=== PATIENT | female | born 1955 | race Two or more races ===

== ENCOUNTER 2025-01-05 02:20 | Inpatient (IN) | payer MEDICARE, MEDICAID, SELFPAY ==
[2025-01-05] VITALS (15 sets, daily range): BP systolic 143–177; BP diastolic 75–96; PULSE 92–148; RESP 17–96; TEMP 36.8–38.8; O2SAT 93–98; BMI 32.9; BMI 35.1
--- NOTE | 2025-01-05 02:31 | XR_ITS ---
Examination: Hand, left 3 views Technique: Hand AP, oblique, lateral 3 views Date and time of exam: January 05, 2025 at 0244 hours INDICATIONS: Patient fell today with injury to the hand and wrist, hand pain and wrist pain FINDINGS: Severe osteopenia Acute impacted fracture distal radial metaphysis without significant offset Displaced fracture ulnar styloid tip IMPRESSION: Acute impacted fracture distal radial metaphysis
--- NOTE | 2025-01-05 02:31 | XR_ITS ---
Examination: Forearm, left, 2 views. Technique: Forearm, AP, lateral 2 views Date and time of exam: January 05, 2025 0250 hours INDICATIONS: Patient fell today with injury of the forearm, forearm pain. FINDINGS: Acute impacted fracture distal radial metaphysis Mild palmar angulation at the fracture site Displaced fracture ulnar styloid tip IMPRESSION: Acute impacted fracture distal radial metaphysis
--- NOTE | 2025-01-05 02:31 | XR_ITS ---
Examination: Wrist, left 3 views Technique: Wrist AP, oblique, lateral 3 views Date and time of exam: January 05, 2025 at 0249 hours INDICATIONS: Patient fell today with injury of the wrist, wrist pain. FINDINGS: Acute impacted fracture distal radial metaphysis Displaced fracture ulnar styloid tip Carpal bones intact IMPRESSION: Acute impacted fracture distal radial metaphysis
--- NOTE | 2025-01-05 02:32 | EKG_ITS ---
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
--- NOTE | 2025-01-05 02:33 | XR_ITS ---
Examination: AP chest single view TECHNIQUE: AP portable upright chest single view Examination type XX 10/07/2024 0241 hours Comparison August 17, 2023 INDICATIONS: Sepsis alert today FINDINGS: Mild prominence left ventricle Scarring versus pneumonia in the lingular segment Mild vascular congestion IMPRESSION: Recommend lateral chest to follow-up to differentiate scarring versus pneumonia in the lingular segment left upper lobe
[2025-01-05] MEDS: SODIUM CHLORIDE 0.9% 1000 ML 1,503 ML 1503 ML IV (02:54)
[2025-01-05 02:55] LABS: Basophils # (Auto) 0.1 Thou/mm3 (0.0-0.2); Basophils % (Auto) 1 % (0-2.5); Eosinophils % (Auto) 0 % (0-10); Hematocrit 33.4 % (36.0-46.0); Hemoglobin 11.5 g/dL (12.0-16.0); Immature Granulocytes % (Auto) 0 % (0-0); Immature Granulocytes Auto 0.03 Thou/mm3 (0.00-0.00); Lymphocytes # (Auto) 1.2 Thou/mm3 (1.0-4.8); Lymphocytes % (Auto) 13 % (10-50); Mean Corpuscular HGB Conc 34.4 g/dl (31.0-37.0); Mean Corpuscular Hemoglobin 26.6 pg (25.0-35.0); Mean Corpuscular Volume 77 fL (80-100); Monocytes # (Auto) 0.7 Thou/mm3 (0.0-0.8); Monocytes % (Auto) 7 % (0-12); Neutrophils # (Auto) 6.9 Thou/mm3 (1.8-7.7); Neutrophils % (Auto) 78 % (37-80); Nucleated Red Blood Cell % 0 /100 WBC (0); Platelet Count 204 Thou/mm3 (140-440); RDW Standard Deviation 41.7 fL (36.4-46.3); Red Blood Count 4.32 Miln/mm3 (4.00-5.20); White Blood Count 8.9 Thou/mm3 (3.6-11.0)
[2025-01-05] MEDS: ACETAMINOPHEN 325 MG TABLET 650 MG PO (02:55)
[2025-01-05] MEDS: cefTRIAXone/D5w 1gm IV premix 1 GM/50 ML BAG IV (02:56)
[2025-01-05 03:01] LABS: Lactate (Lactic Acid) 3.4 mMol/L (0.4-2.0)
--- NOTE | 2025-01-05 03:13 | PD.EDFALL ---
ED Fall Injury RME/HPI General Chief Complaint: Fall Stated Complaint: FALL Time Seen by Provider: 01/05/25 03:13 Source: patient, family, RN notes reviewed and old records reviewed Arrival date/time: 01/05/25 02:20 Mode of arrival: EMS Limitations: language barrier (Polish) RME / HPI RME / HPI Narrative: DR. MEHTA MAIN ED EVALUATION: 69 y/o female with Hx of Hypertension and Anxiety GALEN presents to ED with son c/o fever, increased blood pressure, pain below the right breast, left arm pain, and head pain s/p fall x 3 days ago. Per son, patient slipped and fell in the restroom 3 days ago and tripped over the garden hose 4 days ago. He believes it is due to patient having a panic attack. Patient also reports diarrhea and vomiting x yesterday. She took Pepto Bismal around noon which resolved the symptoms. She is currently taking 2 anxiety medications and 1 blood pressure medication. Ashley states anxiety medication is not working, but continues to be prescribed the same medication and dose. -P MHx: Hypertension, Anxiety -P Social Hx: N/A Patient reports fever, increased blood pressure, pain below the right breast, left arm pain. Also reports vomiting and diarrhea. Patient denies urinary symptoms, cough or any other associated symptoms or aggravating factors. No modifying factors, no radiation, no migration. No pain reported overall. PMHx: Hypertension, Anxiety Medications: Social history: N/A PCP: N/A Related Data Previous Rx's ?Medication ?Instructions ?Recorded cyclobenzaprine 5 mg tablet 5 mg PO TID PRN muscle spasm #30 02/13/23 tabs ibuprofen 800 mg tablet 800 mg PO TID PRN pain #30 tabs 02/13/23 Allergies Allergy/AdvReac Type Severity Reaction Status Date / Time No Known Allergies Allergy Verified 08/17/23 16:45 Review of Systems Review of Systems Systems Reviewed: All systems reviewed, normal except as documented Narrative Review of Systems: Gen: Fever EYES: No discharge, no visual changes, no pain HEENT: Head pain PULM: No cough CV: Elevated blood pressure GI: No nausea, vomiting, diarrhea : No frequency, no urgency, no dysuria Musc/skel: Rib pain, left arm pain Past Medical History Past Medical History CARDIAC: Positive Cardiac Disorders and Hypertension PSYCHO/SOCIAL: Positive Anxiety ED Exam Narrative Physical exam: GENERAL: In general the patient is awake, interactive, in an emergency department gurney, HEAD/EYES/EARS/NOSE/THROAT: normo-cephalic, atraumatic, mucus membranes are dry. Mild TTP occiput, no eccymosis, no step-off. No cervical tenderness palpation midline. Supple neck. CARDIOVASCULAR: Tachycardia, and regular rhythm, no murmurs, heart sounds are not distant, strong pulses in all four extremities that are equal and symmetric bilateral upper and lower extremities, normal capillary refill. CHEST/PULMONARY: normal chest rise and fall, good air movement, clear to auscultation bilaterally, normal inspiratory to expiratory ratios without evidence of respiratory distress. No chest wall ecchymosis or TTP. ABDOMEN: soft, RUQ TTP, no Whitfield's sign, no masses appreciated. BACK: normal range of motion without pain. No midline TTP to thoracic or lumabar spine, no bruising. No flank pain, no deformity. NEUROLOGICAL: cranio-facial features are symmetric, moves all four extremities equally without obvious limitations or weakness. EXTREMITY: no tenderness to palpation over the long bones or large joints of the bilateral upper and lower extremities, little ecchymosis to left mid-anterior tibia, 2 bruises, decreased ROM secondary to pain of LUE, no FROM of left elbow, minimal swelling of left wrist, TTP at distal forearm, FROM of all other extremities, no joint swelling, no joint erythema, no unilateral leg swelling, no peripheral edema. LUE bruising General Limitations: Present language barrier (Polish) Course Course Course Narrative: Post Splint check: left UE splint check- NVI. Quality Measures none (See MDM) Orders Category Date Time Status Bedside COVID-19 Antigen Test NOW Care 01/05/25 03:15 Active Bedside Influenza A&B Antigen Test NOW Care 01/05/25 03:14 Completed Dining Car Steward STAT Care 01/05/25 02:32 Active Continuous Pulse Oximetry STAT Care 01/05/25 02:32 Completed EKG (ED ONLY) *Do not use* NOW Care 01/05/25 02:32 Completed [place] to [place] Routine Care 01/05/25 04:08 Ordered Insert IV NOW Care 01/05/25 02:32 Active NPO STAT Care 01/05/25 02:32 Active Splint / Immobilizer STAT Care 01/05/25 04:07 Active Strict Intake and Output Routine Care 01/05/25 02:[address] cervical spine wo con Stat Exams 01/05/25 04:[address] chest abdomen pelvis w con SEPSIS PROTOCOL Stat Exams 01/05/25 04:[address] head/brain wo con Stat Exams 01/05/25 04:06 Ordered EKG (ED Only) Stat Exams 01/05/25 02:32 Draft US gall bladder Stat Exams 01/05/25 04:11 Taken XR chest 1V SEPSIS PROTOCOL Stat Exams 01/05/25 02:33 Taken XR forearm LT 2V Stat Exams 01/05/25 02:31 Taken XR hand comp LT min 3V Stat Exams 01/05/25 02:31 Taken XR wrist comp LT min 3V Stat Exams 01/05/25 02:31 Taken B-Type Natriuretic Peptide Stat Lab 01/05/25 02:43 Completed Blood Culture (Lab) Stat Lab 01/05/25 02:55 Received CBC Stat Lab 01/05/25 02:43 Completed Comprehensive Metabolic Panel Stat Lab 01/05/25 02:43 Completed LDH (Lactate Dehydrogenase) Stat Lab 01/05/25 02:43 Completed Lactate (Lactic Acid) Stat Lab 01/05/25 02:43 Completed Lactic Acid, 3 HR Stat Lab 01/05/25 05:47 Ordered Lipase Stat Lab 01/05/25 02:43 Completed Magnesium Stat Lab 01/05/25 02:43 Completed Partial Thromboplastin Time Stat Lab 01/05/25 02:43 Completed Phosphorous Stat Lab 01/05/25 02:43 Completed Procalcitonin Stat Lab 01/05/25 02:43 Completed Prothrombin Time with INR Stat Lab 01/05/25 02:43 Completed Troponin I Stat Lab 01/05/25 02:43 Completed Urinalysis Stat Lab 01/05/25 03:10 Completed Urine Culture Stat Lab 01/05/25 03:10 Received Acetaminophen Tab [Tylenol ES Tab] Med 01/05/25 04:15 Discontinued 1,000 mg PO X1 ONE Acetaminophen Tab [Tylenol Tab] Med 01/05/25 02:33 Discontinued 650 mg PO X1 ONE LORazepam [Ativan Inj] Med 01/05/25 04:09 Discontinued 2 mg IVP X1 ONE Ondansetron Inj [Zofran Inj] Med 01/05/25 04:32 Discontinued 4 mg IV X1 ONE Ondansetron Inj [Zofran Inj] Med 01/05/25 05:54 Once 4 mg IV X1 ONE POTASSIUM CHL 10 mEq IVPB [Kcl Ivpb] Med 01/05/25 04:33 Active 10 meq in 100 ml IV Q1H Potassium Chloride [K-Dur] Med 01/05/25 04:09 Discontinued 40 meq PO X1 ONE Sodium Chloride 0.9% 1000 ml [Ns] 1,503 ml Med 01/05/25 02:32 Discontinued IV 1,503 mls/hr cefTRIAXone/D5w 1gm IV premix [Rocephin/D5w 1gm IV Med 01/05/25 02:51 Discontinued premix] 1 gm in 50 ml IV X1 Oxygen Delivery NOW RT 01/05/25 02:32 Active Reevaluation(s) Reevaluation #1: Temperature 98.2F, patient is awake, still tachycardic, BP elevated, lungs CTA. Time: 04:44 Vital Signs Vital signs: Vital Signs Temperature 101.9 F H 01/05/25 02:33 Pulse Rate 125 H 01/05/25 02:33 Respiratory Rate 19 01/05/25 02:33 Blood Pressure 177/96 H 01/05/25 02:33 Pulse Oximetry (%) 97 01/05/25 02:33 Oxygen Delivery Method Room Air 01/05/25 02:33 Procedures -ED EKG Interpretation #1: Date of EK01/05/25 Time of EK:56 Rate: 129 Interpretation: Interpreted by me Additional EKG comment: Sinus tachycardia 129 BPM, no ST elevation, nonspecific St-T in II, similarly to changes in previous EKG, no STEMI, QTc 462. Fall MDM Narrative MDM Narrative:: Scribe Attestation: Anjali Chavira, soledad scribing for and in the presence of Dr. Teran. Provider Notation: Although this document has been carefully reviewed, there may still be some phonetic and other typographical errors. These errors are purely grammatical due to imperfections in the software program and should not be construed in any way to compromise the substance of the patient's medical care during this visit. 69 y/o female with Hx of Hypertension and Anxiety BIBA presents to ED with son c/o fever, increased blood pressure, pain below the right breast, left arm pain, and head pain s/p fall x 3 days ago. Also reports diarrhea and vomiting x yesterday. EDC: Sepis 0444: After 5L of fluids, will repeat lactic acid. DDX: Cellulitis, UTI, Sepsis, Contusion,Wrist fracture, Forearm fracture 0600: Care signed out to the oncoming dayshift provider. Past medical, surgical, social and family history reviewed. Vitals and home medications reviewed. Results and treatment plan discussed. They will assume the care of the patient at this time. Pending CT, US, and final disposition. Patient data External records reviewed:: [facility] previous records ( Prior ED records from 08/17/23 reviewed. Patient was seen for Anxiety.) Clinical information provided by:: patient, EMS and family (Son: ) Social determinants that could affect healthcare access:: none Patient has the following chronic illnesses:: Hypertension, Anxiety How is presenting disease/condition affected by chronic disease/condition?: exacerbated by Evaluation data The following diagnostics were reviewed and interpreted by me:: radiology exam(s) and EKG tracing(s) Lab and/or radiology exams considered but not ordered:: None Interpretation Summary: Chest X-Ray: Chest x-ray, 2V, indication: fall, read and interpreted by me: right middle lobe pneumonia, cannot R/O LLL, no effusion, no CHF, negative for cardiomegaly. Impression: Right middle lobe pneumonia. Pending official radiology read. Wrist X-Ray: Wrist x-ray, indication: fall, read and interpreted by me: distal radius impacted fracture, no dislocation, minimally displaced. Impression: impacted radius fracture. Pending official radiology read. Hand X-Ray: Hand x-ray, indication: fall, read and interpreted by me: distal radius impacted fracture, no dislocation, minimally displaced. Impression: impacted radius fracture. Pending official radiology read. Forearm X-Ray: Forearm 2v x-ray, indication: fall, read and interpreted by me: distal radius impacted fracture, no dislocation, minimally displaced. Impression: impacted radius fracture. Pending official radiology read. Medications / Prescriptions Medications or Prescriptions considered but not ordered:: None Medication administrations:: Medication Administration History Potassium Chloride (Kcl Ivpb) 10 meq in 100 mls @ 100 mls/hr IV Q1H LYNDA Stop: 01/05/25 06:32 Last Admin: 01/05/25 05:08 Dose: 100 mls/hr Documented By: EF Ondansetron HCl (Ondansetron Inj 2 Mg/Ml Inj 2 Ml) 4 mg IV X1 ONE; Protocol Stop: 01/05/25 05:55 Discontinued Medications Acetaminophen (Acetaminophen 325 Mg Tablet) 650 mg PO X1 ONE Stop: 01/05/25 02:34 Last Admin: 01/05/25 02:55 Dose: 650 mg Documented By: EF Acetaminophen (Acetaminophen 500 Mg Tablet) 1,000 mg PO X1 ONE Stop: 01/05/25 04:16 Last Admin: 01/05/25 04:14 Dose: Not Given Documented By: EF Non-Admin Reason: Cancelled by Provider Sodium Chloride (Ns) 1,503 mls @ 1,503 mls/hr 30 ml/kg infuse over 60 min (1503 ml) IV .Q1H ONE Stop: 01/05/25 03:31 Last Infusion: 01/05/25 03:38 Dose: Infused Documented By: Admin: 01/05/25 02:54 Dose: 1,503 mls/hr Documented By: EF Ceftriaxone Sodium/Dextrose (Rocephin/D5w 1gm Iv Premix) 1 gm in 50 mls @ 100 mls/hr IV X1 ONE Stop: 01/05/25 03:20 Last Infusion: 01/05/25 03:26 Dose: Infused Documented By: Admin: 01/05/25 02:56 Dose: 100 mls/hr Documented By: EF Lorazepam (Lorazepam 2 Mg/Ml Vial) 2 mg IVP X1 ONE Stop: 01/05/25 04:10 Last Admin: 01/05/25 04:18 Dose: 2 mg Documented By: EF Ondansetron HCl (Ondansetron Inj 2 Mg/Ml Inj 2 Ml) 4 mg IV X1 ONE; Protocol Stop: 01/05/25 04:33 Last Admin: 01/05/25 05:08 Dose: 4 mg Documented By: EF Potassium Chloride (Potassium Chloride 20 Meq Tabcr) 40 meq PO X1 ONE Stop: 01/05/25 04:10 Last Admin: 01/05/25 04:36 Dose: Not Given Documented By: EF Non-Admin Reason: pt vomitted See above if any Consultations Consultation(s) initiated? (list below): No Diagnosis Fall Differential Diagnosis: compression fracture, concussion with loss of consciousness and other (Cellulitis, UTI, Sepsis, Contusion,Wrist fracture, Forearm fracture) Most likely diagnosis given after review of the tests above:: Sepsis, Abdominal pain, Fracture of wrist, Elevated lactic acid level Admission Indicated Admission indicated?: not indicated Explain why admission is indicated or not indicated:: Pending CT, US, and final disposition. Signed out to 6 AM provider. Admission Request Was there a request for admission?: No Disposition Plan Disposition Plan: other (specify) Discharge Plan Prescriptions/Referrals Prescriptions/Med Rec: No Action ibuprofen 800 mg tablet 800 mg PO TID PRN (Reason: pain) Qty: 30 0RF cyclobenzaprine 5 mg tablet 5 mg PO TID PRN (Reason: muscle spasm) Qty: 30 0RF Problem List Clinical Impression: Abdominal pain, Fracture of wrist, Sepsis, Elevated lactic acid level Patient/Caregiver Discharge Instructions Education Materials: Abdominal Pain, Treating Wrist Fractures, Sepsis, ED Panic Attack, ED Fracture, Wrist, General Additional Instructions: DISCHARGE INSTRUCTIONS Even though you have been discharged from the Emergency Department, there are several things that you should do to ensure that you receive proper care: 1. DO READ your discharge instructions as these contain important information concerning your medical care. 2. If medication has been prescribed for your condition, fill the prescription as soon as possible and follow the directions on the medication. 3. RETURN AT ONCE TO THE EMERGENCY DEPARTMENT if you have any problems or concerns. These include but are not limited to fever, worsening pain(belly, chest, head, etc?), worsening shortness of breath, uncontrollable bleeding, inability to tolerate food and water, or any condition that makes you question your well-being. Also, if your symptoms do not improve in the next 12-24 hours, return to the ER or seek medical care immediately. 4. Be sure to follow up with your regular physician or specialist as instructed at discharge as this is the best way to ensure that you receive the very best of care. If you do not have a primary care physician, please contact a physician group and make an appointment. 5. Please visit [employer] for coupons regarding your prescriptions. It is a free service for you to use and can help reduce the cost of your medication. We would like to thank you for coming today and our hope is that we served you and your family well during your stay Jessiac regan sido dado de yumiko del Departamento de Emergencias sin embargo hay algunas cosas que debe hacer para asegurarse de que jessica continue recibiendo el cuidado adecuado. Por favor miracle las siguientes instrucciones con atenci?n: ? 1. Si es que le dieron alguna prescripci?n (medicamento), asegurese de ir a la farmacia de randhawa preferencia, llenar el medicamento y tomarlo conforme a las instrucciones. ? 2. Leas las instrucciones de yumiko con mucho cuidado dado que contienen informaci?n importante para randhawa melida y cuidado. 3. REGRESE AL DEPARTAMENTO DE EMERGENCIA SI tiene alg?n tipo de problema o preocupaci?n. [place] inclu[place] rosita no esta limitado a fiebre, mucho dolor abdominal, dolor de pecho, mucho dolor de madelin, falta de aire, sangrado incontrolable, nauseas o vomitos incontrolables, inhabilidad de tolerar alimentos, o cualquier otro tipo de condici?n que le tanvir cuestionar randhawa melida. 4. Asegurese de seguir con randhawa medico primario (tambien llamado medico de monika) o con el medico especialista que le indicaron al momento del yumiko en 3 a 5 lehman dado que esta es la mejor manera de asegurar que bob recibiendo el mejor cuidado medico. ? 5. Si es que tiene un telefono inteligente (smartphone) revise la pagina web o aplicaci?n [place] antes de pagar por fani prescripciones (medicinas) dado que asi podr?a encontrar un cup?n para que fani medicinas alfred menos costosas. El servicio es gratuito. ? Le agradecemos randhwaa visita el [place] de hoy y esperamos que randhawa melida mejore. Print Language: Polish
--- NOTE | 2025-01-05 03:16 | PC.NURSE ---
in and out not needed pt used restroom
[2025-01-05 03:24] LABS: Collection Type, Urine Clean Catch
[2025-01-05 03:45] LABS: B-Type Natriuretic Peptide 48 pg/mL (0-100)
[2025-01-05 03:50] LABS: Alanine Aminotransferase 32 U/L (10-49); Albumin, Serum 4.4 gm/dL (3.4-4.8); Albumin/Globulin Ratio 1.5 (1.2-2.2); Alkaline Phosphatase 77 U/L (46-116); Anion Gap 13 (7-16); Aspartate Amino Transferase 48 U/L (0-34); BUN/Creatinine Ratio 7 Ratio (12-20); Bilirubin,Total 1.5 mg/dL (0.3-1.2); Blood Urea Nitrogen 6 mg/dL (9-23); Calcium 8.6 mg/dL (8.3-10.6); Calcium (Corrected) 8.6 mg/dL (8.5-10.1); Carbon Dioxide 21.7 mMol/L (20.0-31.0); Chloride 100 mMol/L (98-107); Creatinine (Component) 0.9 mg/dL (0.6-1.3); Estimated Creatinine Clearance 59.2 mL/min (>60); Glucose 171 mg/dL (74-106); LDH (Lactate Dehydrogenase) 344 U/L (120-246); Lipase 37 U/L (12-53); Osmolality,Calculated 271 (275-295); Phosphorous 2.6 mg/dL (2.4-5.1); Sodium 135 mMol/L (136-145); Total Protein 7.4 gm/dL (5.7-8.2); Troponin I < 0.020 ng/mL (0.0-0.045); eGFR > 60 See Note
[2025-01-05 03:53] LABS: Procalcitonin 0.07 ng/ml (0.0-0.49)
[2025-01-05 03:55] LABS: INR 1.1 (0.9-1.3); Partial Thromboplastin Time 25.4 Seconds (22.0-36.0); Prothrombin Time 11.7 Seconds (9.0-12.2)
[2025-01-05 04:04] LABS: Bilirubin,Urine Negative (Negative); Blood,Urine Trace (Negative); Clarity,Urine Clear (Clear/Hazy); Color,Urine Lt-Yellow (Lt Yel-Yel); Glucose, Urine Negative (Negative); Hyaline Casts,Urine < 1 /hpf (0-1); Ketones,Urine 1+ (Negative); Leukocyte Esterase,Urine Negative (Negative); Nitrite,Urine Negative (Negative); PH,Urine 6.5 (5.0-7.0); Protein,Urine Trace (Neg - Trace); RBC,Urine 2 /hpf (0-3); Specific Gravity,Urine 1.019 (1.001-1.035); Squamous Epithelial Cell,Urine 2 /hpf (0-5); Urobilinogen,Urine Negative mg/dL (0.0-1.0); WBC,Urine 1 /hpf (0-5)
--- NOTE | 2025-01-05 04:06 | XR_ITS ---
Examination: CT brain head without contrast. 2-D sagittal coronal reconstructions Date and time of exam:January 05, 2025 0423 hours INDICATIONS: Patient fell 2 days ago with injury to the head, head pain CTDI: vol (mGy):54.4 DLP: (mGycm):1023 Technique: Multiple CT axial sections of the brain have been obtained, 5 mm slice thickness. Contrast has not been administered. 2-D sagittal, coronal reconstructions have been obtained Low dose protocols were performed. One or more of the following dose reduction techniques were used; automated exposure control, adjustment of the mA and/or KV according to patient size, use of iterative reconstruction technique. Findings: No significant ventricular enlargement. Intra-axial or extra-axial hemorrhage density is not seen. No mass effect or midline shift Basal cisterns are not remarkable. Fourth ventricle is midline. Cranial vault intact. Impression: Negative for acute hemorrhage, mass effect or midline shift
--- NOTE | 2025-01-05 04:06 | XR_ITS ---
Examination: CT chest with intravenous contrast CT abdomen with intravenous contrast CT pelvis with intravenous contrast 2-D coronal and sagittal reconstructions Time of exam: January 05, 2025 0523 hours INDICATIONS: Sepsis alert, patient fell today with injury to chest and abdomen with fever CTDI: vol (mGy) : 47.7 DLP: (mGycm): 1962 Technique: Multiple axial images of the chest, abdomen and pelvis with intravenous contrast, 3.0 mm slice thickness. Images obtained post intravenous injection Isovue 370 60 cc. 2-D sagittal and coronal reconstructions. Low dose protocols were performed. One or more of the following dose reduction techniques were used; automated exposure control, adjustment of the mA and/or KV according to patient size, use of iterative reconstruction technique. Findings: Pulmonary arteries intact No hemopericardium Trace pericardial thickening No pneumothorax pulmonary contusion or pneumonia No hemothorax Nondisplaced fractures right third and fourth and fifth ribs Manubrium body of the sternum is intact Prominent osteopenia with chronic osteoporotic compressions T8, T7, T6, T5 No acute thoracic lumbar or sacral fracture No liver splenic or renal laceration The gallbladder is distended with possible sludge Abdominal aorta is intact, no free body in the abdomen No abdominal or pelvic abscess No pericecal inflammatory change Colonic diverticulosis, no diverticulitis Atrophic uterus Urinary bladder intact Hips bones of the pelvis intact IMPRESSION: Nondisplaced fractures right third, fourth, fifth ribs anteriorly which may be acute, the appearance should be clinically correlated Thoracic aorta pulmonary arteries intact. No pneumothorax pulmonary contusion or hemothorax No abdominal parenchymal laceration No abdominal or pelvic abscess Abdominal aorta intact, no free fluid in the abdomen or pelvis Colonic diverticulosis, no diverticulitis
--- NOTE | 2025-01-05 04:07 | XR_ITS ---
Examination: CT cervical spine without contrast 2-D sagittal reconstructions 2-D coronal reconstructions 3-D reconstructions. Exam date and time:January 05, 2025 at 0423 hours INDICATIONS: Patient fell 3 days ago with injury to the neck, neck pain CTDI:vol (mGy) 20.9 DLP: (mGycm) 1390 Technique: Multiple 2 mm axial sections of the cervical spine have been obtained. The coronal and sagittal reconstructions have been obtained. 3-D reconstructions have been obtained. Low dose protocols were performed. One or more of the following dose reduction techniques were used; automated exposure control, adjustment of the mA and/or KV according to patient size, use of iterative reconstruction technique. Findings: Axial sections demonstrate intact base of the skull. C1 exhibit satisfactory relationship to the odontoid. No acute cervical vertebral body fracture seen. Alignment posterior spinous processes satisfactory. Impression: No acute cervical fracture.
--- NOTE | 2025-01-05 04:11 | XR_ITS ---
Examination: Abdomen sonogram, Limited Date and time of exam: January 05, 2025 at 0449 hours INDICATIONS: Right upper abdominal pain beginning 3 days ago Technique: Real-time de guzman scale transabdominal sonographic images of the upper abdomen obtained. Findings: Multiple gallstones Gallbladder sludge Gallbladder wall 0.2 cm Common bile duct 0.5 cm Pancreatic head 2.1 cm Liver 17 cm lobular contour fatty infiltration Normal hepatopedal portal venous flow Date and IVC Impression :. Cholelithiasis, negative or cholecystitis Mild hepatomegaly primary hepatocellular disease fatty liver
[2025-01-05] MEDS: LORazepam 2 MG/ML VIAL IVP (04:18)
[2025-01-05] MEDS: POTASSIUM CHL 10 mEq IVPB 10 MEQ/100 ML BAG 100 MEQ IV ×2 (05:08→07:13)
[2025-01-05] MEDS: ONDANSETRON INJ 2 MG/ML INJ 2 ML 4 MG IV ×3 (05:08→21:42)
--- NOTE | 2025-01-05 05:36 | PRELIM_ITS ---
Gallbladder ultrasound. January 05, 2025 at 0449 hours Clinical history: 69 yo with RUQ pain. Comparison: No prior study is available for comparison. Findings: Gallbladder wall is 2 mm thick. Gallbladder calculi and sludge noted. Gallbladder is distended. Common bile duct is 5 mm in diameter. Pancreas is unremarkable to the extent visualized. Liver is fatty infiltrated lobular contour. No focal hepatic lesion. Liver is 17.0 cm long. Main portal vein is antegrade. Inferior vena cava is patent. Impression: Gallbladder sludge and calculi, without findings of cholecystitis. Consider possible cystic duct obstruction. Fatty liver. Possible cirrhosis. Report Electronically Signed By: Demarco Torres 01/05/2025 5:36:14 AM [EST]
[2025-01-05 05:47] LABS: Reflex Lactate? Y
[2025-01-05 06:17] LABS: Lactic Acid, 3 HR 2.1 mMol/L (0.4-2.0)
--- NOTE | 2025-01-05 06:18 | PRELIM_ITS ---
CT scan of the head without intravenous contrast (axial sections with sagittal and coronal reformats). January 05, 2025 0423 hours Clinical History: 69 yo with hx of fall Comparison: None Findings: There is no intracranial hemorrhage, extra-axial collection, mass, mass-effect or midline shift. There is good de guzman-white differentiation. There is no CT evidence of acute large vascular territorial infarct. Ventricles are not enlarged or effaced. There is atherosclerotic calcification along the carotid siphons. Visualized paranasal sinuses and tympanomastoid cavities are clear. The bony calvarium is intact. Impression: No intracranial hemorrhage, mass-effect or midline shift. No CT evidence of acute large vascular territorial infarct. Report Electronically Signed By: Ricardo Johnson 01/05/2025 6:17:59 AM [EST]
--- NOTE | 2025-01-05 06:30 | PRELIM_ITS ---
CT scan of the chest, abdomen and pelvis with intravenous contrast (axial sections with sagittal and coronal reformats). January 05, 2025 0523 hours Clinical History: 69 yo with fall, sepsis Comparison: Correlation made with right upper quadrant ultrasound from 01/05/25 Findings: Chest: Heart is normal in size. There is no pericardial or pleural effusion. There is no thoracic aortic aneurysm or dissection. Visualized thyroid is unremarkable. There is no thoracic lymphadenopathy. There is minimal subsegmental atelectasis in the lungs. There is no pneumothorax. There is no acute osseous abnormality. There is degenerative change in the spine. There are old appearing compression fractures within the thoracic spine. Abdomen/pelvis: There is fatty liver. Gallbladder appears distended. The spleen, pancreas, adrenals and kidneys are unremarkable except for small incidental right upper pole renal cyst. Urinary bladder is of normal partially filled configuration. Reproductive organs are unremarkable. There are colonic diverticula without evidence of diverticulitis. There is no bowel obstruction. Appendix is normal. There is no free intraperitoneal air or fluid. There is no abdominal or pelvic lymphadenopathy. There is no acute osseous abnormality of the lumbar spine or pelvis. Impression: No acute abnormality in the chest, abdomen or pelvis. Report Electronically Signed By: Ricardo Johnson 01/05/2025 6:30:25 AM [EST]
--- NOTE | 2025-01-05 06:36 | EDNOTE_ITS ---
Emergency Room Addendum <Ramandeep Moon - Last Filed: 01/05/25 09:38> Addendum Narrative: 0600: Care assumed from Dr. Jansen (emergency physician). Past medical, surgical, social and family history reviewed. Vitals and home medications reviewed. Results and treatment plan discussed. I will assume the care of the patient at this time and will follow the patient, pending work-up. 0852: Admission Resident working with Dr. Zheng, made aware of the patient?s HPI, PMHx, lab and/or radiology results. Treatment plan was discussed. Will admit for further evaluation and management. Accepts patient for admission. DIAGNOSIS: Neutropenic fever abdominal pain fracture of wrist sepsis elevated lactic acid level pneumonia RADIOLOGY REPORT: Ordering Physician: Morenita Jansen MD Date of Service: 01/05/25 Procedure(s): CT chest abd pel w SEPSIS PRO Accession Number(s): [id number] cc: Chidi Lehman PA-C; Michel Ryan MD; Morenita Jansen MD~ Examination: CT chest with intravenous contrast CT abdomen with intravenous contrast CT pelvis with intravenous contrast 2-D coronal and sagittal reconstructions Time of exam: January 05, 2025 0523 hours INDICATIONS: Sepsis alert, patient fell today with injury to chest and abdomen with fever CTDI: vol (mGy) : 47.7 DLP: (mGycm): 1962 Technique: Multiple axial images of the chest, abdomen and pelvis with intravenous contrast, 3.0 mm slice thickness. Images obtained post intravenous injection Isovue 370 60 cc. 2-D sagittal and coronal reconstructions. Low dose protocols were performed. One or more of the following dose reduction techniques were used; automated exposure control, adjustment of the mA and/or KV according to patient size, use of iterative reconstruction technique. Findings: Pulmonary arteries intact No hemopericardium Trace pericardial thickening No pneumothorax pulmonary contusion or pneumonia No hemothorax Nondisplaced fractures right third and fourth and fifth ribs Manubrium body of the sternum is intact Prominent osteopenia with chronic osteoporotic compressions T8, T7, T6, T5 No acute thoracic lumbar or sacral fracture No liver splenic or renal laceration The gallbladder is distended with possible sludge Abdominal aorta is intact, no free body in the abdomen No abdominal or pelvic abscess No pericecal inflammatory change Colonic diverticulosis, no diverticulitis Atrophic uterus Urinary bladder intact Hips bones of the pelvis intact IMPRESSION: Nondisplaced fractures right third, fourth, fifth ribs anteriorly which may be acute, the appearance should be clinically correlated Thoracic aorta pulmonary arteries intact. No pneumothorax pulmonary contusion or hemothorax No abdominal parenchymal laceration No abdominal or pelvic abscess Abdominal aorta intact, no free fluid in the abdomen or pelvis Colonic diverticulosis, no diverticulitis Dictated By: Michel Ryan MD Signed By: <Electronically signed by Michel Ryan MD in OV> 01/05/25 0753 Ordering Physician: Morenita Jansen MD Date of Service: 01/05/25 Procedure(s): CT head/brain wo [facility] Accession Number(s): [id number] cc: Chidi Lehman PA-C; Michel Ryan MD; Morenita Jansen MD~ Examination: CT brain head without contrast. 2-D sagittal coronal reconstructions Date and time of exam:January 05, 2025 0423 hours INDICATIONS: Patient fell 2 days ago with injury to the head, head pain CTDI: vol (mGy):54.4 DLP: (mGycm):1023 Technique: Multiple CT axial sections of the brain have been obtained, 5 mm slice thickness. Contrast has not been administered. 2-D sagittal, coronal reconstructions have been obtained Low dose protocols were performed. One or more of the following dose reduction techniques were used; automated exposure control, adjustment of the mA and/or KV according to patient size, use of iterative reconstruction technique. Findings: No significant ventricular enlargement. Intra-axial or extra-axial hemorrhage density is not seen. No mass effect or midline shift Basal cisterns are not remarkable. Fourth ventricle is midline. Cranial vault intact. Impression: Negative for acute hemorrhage, mass effect or midline shift Dictated By: Michel Ryan MD Signed By: <Electronically signed by Michel Ryan MD in OV> 01/05/25 0746 Ordering Physician: Morenita Jansen MD Date of Service: 01/05/25 Procedure(s): CT cervical spine wo con Accession Number(s): [id number] cc: Chidi Lehman PA-C; Michel Ryan MD; Morenita Jansen MD~ Examination: CT cervical spine without contrast 2-D sagittal reconstructions 2-D coronal reconstructions 3-D reconstructions. Exam date and time:January 05, 2025 at 0423 hours INDICATIONS: Patient fell 3 days ago with injury to the neck, neck pain CTDI:vol (mGy) 20.9 DLP: (mGycm) 1390 Technique: Multiple 2 mm axial sections of the cervical spine have been obtained. The coronal and sagittal reconstructions have been obtained. 3-D reconstructions have been obtained. Low dose protocols were performed. One or more of the following dose reduction techniques were used; automated exposure control, adjustment of the mA and/or KV according to patient size, use of iterative reconstruction technique. Findings: Axial sections demonstrate intact base of the skull. C1 exhibit satisfactory relationship to the odontoid. No acute cervical vertebral body fracture seen. Alignment posterior spinous processes satisfactory. Impression: No acute cervical fracture. Dictated By: Michel Ryan MD Signed By: <Electronically signed by Michel Ryan MD in OV> 01/05/25 0747 Ordering Physician: Morenita Jansen MD Date of Service: 01/05/25 Procedure(s): US gall bladder Accession Number(s): [id number] cc: Chidi Lehman PA-C; Michel Ryan MD; Morenita Jansen MD~ Examination: Abdomen sonogram, Limited Date and time of exam: January 05, 2025 at 0449 hours INDICATIONS: Right upper abdominal pain beginning 3 days ago Technique: Real-time de guzman scale transabdominal sonographic images of the upper abdomen obtained. Findings: Multiple gallstones Gallbladder sludge Gallbladder wall 0.2 cm Common bile duct 0.5 cm Pancreatic head 2.1 cm Liver 17 cm lobular contour fatty infiltration Normal hepatopedal portal venous flow Date and IVC Impression :. Cholelithiasis, negative or cholecystitis Mild hepatomegaly primary hepatocellular disease fatty liver Dictated By: Michel Ryan MD Signed By: <Electronically signed by Michel Ryan MD in OV> 01/05/25 0856 <Louise Ma MD - Last Filed: 01/11/25 18:50> Addendum Narrative: 0600: Care assumed from Dr. Jansen (emergency physician). Past medical, surgical, social and family history reviewed. Vitals and home medications reviewed. Results and treatment plan discussed. I will assume the care of the patient at this time and will follow the patient, pending work-up. 0852: Resident working with Dr. Zheng, made aware of the patient?s HPI, PMHx, lab and/or radiology results. Treatment plan was discussed. Will admit for further evaluation and management. Accepts patient for admission. DIAGNOSIS: Neutropenic fever abdominal pain fracture of wrist sepsis elevated lactic acid level pneumonia RADIOLOGY REPORT: Ordering Physician: Morenita Jansen MD Date of Service: 01/05/25 Procedure(s): CT chest abd pel w SEPSIS PRO Accession Number(s): [id number] cc: Chidi Lehman PA-C; Michel Ryan MD; Morenita Jansen MD~ Examination: CT chest with intravenous contrast CT abdomen with intravenous contrast CT pelvis with intravenous contrast 2-D coronal and sagittal reconstructions Time of exam: January 05, 2025 0523 hours INDICATIONS: Sepsis alert, patient fell today with injury to chest and abdomen with fever CTDI: vol (mGy) : 47.7 DLP: (mGycm): 1962 Technique: Multiple axial images of the chest, abdomen and pelvis with intravenous contrast, 3.0 mm slice thickness. Images obtained post intravenous injection Isovue 370 60 cc. 2-D sagittal and coronal reconstructions. Low dose protocols were performed. One or more of the following dose reduction techniques were used; automated exposure control, adjustment of the mA and/or KV according to patient size, use of iterative reconstruction technique. Findings: Pulmonary arteries intact No hemopericardium Trace pericardial thickening No pneumothorax pulmonary contusion or pneumonia No hemothorax Nondisplaced fractures right third and fourth and fifth ribs Manubrium body of the sternum is intact Prominent osteopenia with chronic osteoporotic compressions T8, T7, T6, T5 No acute thoracic lumbar or sacral fracture No liver splenic or renal laceration The gallbladder is distended with possible sludge Abdominal aorta is intact, no free body in the abdomen No abdominal or pelvic abscess No pericecal inflammatory change Colonic diverticulosis, no diverticulitis Atrophic uterus Urinary bladder intact Hips bones of the pelvis intact IMPRESSION: Nondisplaced fractures right third, fourth, fifth ribs anteriorly which may be acute, the appearance should be clinically correlated Thoracic aorta pulmonary arteries intact. No pneumothorax pulmonary contusion or hemothorax No abdominal parenchymal laceration No abdominal or pelvic abscess Abdominal aorta intact, no free fluid in the abdomen or pelvis Colonic diverticulosis, no diverticulitis Dictated By: Michel Ryan MD Signed By: <Electronically signed by Michel Ryan MD in OV> 01/05/25 0753 Ordering Physician: Morenita Jansen MD Date of Service: 01/05/25 Procedure(s): CT head/brain wo con Accession Number(s): [id number] cc: Chidi Lehman PA-C; Michel Ryan MD; Morenita Jansen MD~ Examination: CT brain head without contrast. 2-D sagittal coronal reconstructions Date and time of exam:January 05, 2025 0423 hours INDICATIONS: Patient fell 2 days ago with injury to the head, head pain CTDI: vol (mGy):54.4 DLP: (mGycm):1023 Technique: Multiple CT axial sections of the brain have been obtained, 5 mm slice thickness. Contrast has not been administered. 2-D sagittal, coronal reconstructions have been obtained Low dose protocols were performed. One or more of the following dose reduction techniques were used; automated exposure control, adjustment of the mA and/or KV according to patient size, use of iterative reconstruction technique. Findings: No significant ventricular enlargement. Intra-axial or extra-axial hemorrhage density is not seen. No mass effect or midline shift Basal cisterns are not remarkable. Fourth ventricle is midline. Cranial vault intact. Impression: Negative for acute hemorrhage, mass effect or midline shift Dictated By: Michel Ryan MD Signed By: <Electronically signed by Michel Ryan MD in OV> 01/05/25 0746 Ordering Physician: Morenita Jansen MD Date of Service: 01/05/25 Procedure(s): CT cervical spine wo con Accession Number(s): [id number] cc: Chidi Lehman PA-C; Michel Ryan MD; Morenita Jansen MD~ Examination: CT cervical spine without contrast 2-D sagittal reconstructions 2-D coronal reconstructions 3-D reconstructions. Exam date and time:January 05, 2025 at 0423 hours INDICATIONS: Patient fell 3 days ago with injury to the neck, neck pain CTDI:vol (mGy) 20.9 DLP: (mGycm) 1390 Technique: Multiple 2 mm axial sections of the cervical spine have been obtained. The coronal and sagittal reconstructions have been obtained. 3-D reconstructions have been obtained. Low dose protocols were performed. One or more of the following dose reduction techniques were used; automated exposure control, adjustment of the mA and/or KV according to patient size, use of iterative reconstruction technique. Findings: Axial sections demonstrate intact base of the skull. C1 exhibit satisfactory relationship to the odontoid. No acute cervical vertebral body fracture seen. Alignment posterior spinous processes satisfactory. Impression: No acute cervical fracture. Dictated By: Michel Ryan MD Signed By: <Electronically signed by Michel Ryan MD in OV> 01/05/25 0747 Ordering Physician: Morenita Jansen MD Date of Service: 01/05/25 Procedure(s): US gall bladder Accession Number(s): [id number] cc: Chidi Lehman PA-C; Michel Ryan MD; Morenita Jansen MD~ Examination: Abdomen sonogram, Limited Date and time of exam: January 05, 2025 at 0449 hours INDICATIONS: Right upper abdominal pain beginning 3 days ago Technique: Real-time de guzman scale transabdominal sonographic images of the upper abdomen obtained. Findings: Multiple gallstones Gallbladder sludge Gallbladder wall 0.2 cm Common bile duct 0.5 cm Pancreatic head 2.1 cm Liver 17 cm lobular contour fatty infiltration Normal hepatopedal portal venous flow Date and IVC Impression :. Cholelithiasis, negative or cholecystitis Mild hepatomegaly primary hepatocellular disease fatty liver Dictated By: Michel Ryan MD Signed By: <Electronically signed by Michel Ryan MD in OV> 01/05/25 0856
--- NOTE | 2025-01-05 06:37 | PRELIM_ITS ---
CT scan of the cervical spine without intravenous contrast (axial sections with sagittal and coronal reformats). January 05, 2025 0423 hours Clinical History: 69 yo with fall Comparison: None Findings: There is no fracture, traumatic subluxation or other acute osseous abnormality of the cervical spine. There is straightening of the cervical spine curvature with loss of normal cervical lordosis. The prevertebral soft tissues are unremarkable. Impression: No acute osseous abnormality of the cervical spine. Straightening of the cervical spine may indicate muscle spasm. Report Electronically Signed By: Ricardo Johnson 01/05/2025 6:36:37 AM [EST]
[2025-01-05] MEDS: SODIUM CHLORIDE 0.9% 1000 ML 1,000 ML 999 ML IV (08:13)
[2025-01-05 10:09] LABS: Lactate (Lactic Acid) 0.9 mMol/L (0.4-2.0)
[2025-01-05 10:11] LABS: Basophils % (Auto) 1 % (0-2.5); Eosinophils % (Auto) 0 % (0-10); Hematocrit 29.3 % (36.0-46.0); Immature Granulocytes % (Auto) 0 % (0-0); Immature Granulocytes Auto 0.01 Thou/mm3 (0.00-0.00); Lymphocytes # (Auto) 0.9 Thou/mm3 (1.0-4.8); Lymphocytes % (Auto) 16 % (10-50); Mean Corpuscular HGB Conc 34.1 g/dl (31.0-37.0); Mean Corpuscular Hemoglobin 26.7 pg (25.0-35.0); Mean Corpuscular Volume 78 fL (80-100); Monocytes # (Auto) 0.5 Thou/mm3 (0.0-0.8); Monocytes % (Auto) 10 % (0-12); Neutrophils # (Auto) 3.9 Thou/mm3 (1.8-7.7); Neutrophils % (Auto) 73 % (37-80); Nucleated Red Blood Cell % 0 /100 WBC (0); Platelet Count 159 Thou/mm3 (140-440); RDW Standard Deviation 42.3 fL (36.4-46.3); Red Blood Count 3.74 Miln/mm3 (4.00-5.20); White Blood Count 5.4 Thou/mm3 (3.6-11.0)
--- NOTE | 2025-01-05 10:13 | PC.CC ---
Patient is a 69 year-old female who presents to the hospital for a fall. Jodee SHORT made [id number] contact with patient. ASW introduced self, role, and reason for visit. Patient appeared alert and oriented to self, location, and situation. Patient was pleasant and engaged in initial assessment. Patient reports she lives at home with her Lyle Damian. Patient reports her medical decision maker would be her in the event she is unable to make her own medical decisions. At home patient has been able to ambulate independently and complete her own ADLs. Patient reports she does not use any DME at home. She receives primary care with Chidi Lehman at [facility] and uses their pharmacy for prescription medications. Upon discharge the patient plans to return home. hotel services supervisor to follow up with any discharge needs.
--- NOTE | 2025-01-05 10:20 | ESHP_ITS ---
<Statement entered by Manisha Zheng MD - 01/08/25 12:11> I reviewed above note and agree with findings and plans. I have also personally examined the patient with medicine team and went over assessment and plan with medical team including trestle mainternance laborer and resident physician. <Statement entered by Regan Valdze MD - 01/05/25 16:12> Patient coming in with intractable nausea and vomiting, will replete electrolytes and monitor kidney function. Also has fractures from frequent falls which are likely secondary from dehydration. Will consult ortho and have PT work with patient once more stable. Case discussed with team. Regan Valdez MD PGY3 Documentation for date of: 01/05/25 HPI History of Present Illness History of present illness: Ms. eBltrán is a 69-year-old female with past medical history significant for hypertension, anxiety disorder with recurrent panic attacks presented to the ED due to intractable vomiting since yesterday and diarrhea for the past 3 days. Patient states that she has been having recurrent falls as well for the last 3 days. Patient states that she often gets panic attacks at least once daily which causes her to get very weak in her arms and legs and usually falls. She cannot recall if she has syncopal episodes or not but she does know that when she is having a panic attack she feels like she is dying she gets very short of breath and lightheaded and gets a severe headache. Patient states that she gets at least 1 panic attack daily and they are unprovoked by emotional or physical stressors. Patient states that she has been having a lot of anxiety for the past 5 years but the panic attacks are fairly new. Patient states for the past 3 days she has been having diarrhea and yesterday she took Pepto-Bismol which slightly has helped because she has not had a bowel movement today. Patient denies any recent travels or any changes to her diet. Patient also denies any sick contacts or anyone else at home who may have been sick with similar symptoms. Patient lives at home with her and and performs her activities of daily living independently. Patient denies any chest pain, palpitations, shortness of breath, abdominal pain currently. Pt denies hematemesis, melana or hematochezia. Patient states that for the past few days she has noticed she has mild tenderness on the right side of her chest and her left arm is also been hurting. ED course In the ED patient blood pressure was 177/96, pulse 125, temperature 101.9, saturating on room air Labs are significant for hemoglobin 11.5, hematocrit 33.4, MCV 77, sodium 135, potassium 3.0, glucose 177, lactate 3.4 ->2.1, total bilirubin 1.5, AST 48, lactic dehydrogenase 344 Urinalysis has no findings Imaging Forearm x-ray: L. Acute impacted fracture distal radial metastasis Hand x-ray: L. Acute impacted fracture distal radial metastasis Wrist x-ray: left acute impacted fracture distal radial metastasis Chest x-ray: Mild prominence left ventricle, Scarring versus pneumonia in the lingular segment, Mild vascular congestion CT chest/abdomen/pelvis: Nondisplaced fractures right third, fourth, fifth ribs anteriorly which may be acute, the appearance should be clinically correlated CT of head negative for acute hemorrhage, mass effect or midline shift CT cervical spine: No acute cervical fractures Gallbladder ultrasound: Cholelithiasis, negative for cholecystitis and mild hepatomegaly primary hepatocellular disease fatty liver disease EKG: Sinus tachycardia with heart rate of 129, no acute ST or T wave changes PMH: Hypertension, anxiety PSH: abdominal surgical (Pt does not know the reason of surgery, it was decades ago) SH: Denies smoking cigerrets, denies drugs and occational Home Meds: Hydrochlorothiazide 25mg, Hydroxyzine 25 PO, escitalopram 10mg Review of Systems Review of Systems Systems Reviewed: All systems reviewed, normal except as documented Exam Vital Signs Temp Pulse Resp BP Pulse Ox O2 Del Method 98.4 F 111 H 18 151/76 H 94 L Room Air 01/05/25 10:15 01/05/25 10:15 01/05/25 10:15 01/05/25 10:15 01/05/25 10:15 01/05/25 10:15 Narrative Exam GENERAL: A&Ox3 . obese, Ukrainian speaking female, cooperative, does not appear to be in acute distress NEURO: no focal neurological deficits HEENT: Atraumatic, Normocephalic. mucous membranes moist. Eyes open, symmetrical, & clear HEART: Normal Heart Sounds LUNGS: Clear to auscultation with no wheezing or crackles. ABDOMEN: soft, non-distended, non-tender, bowel sounds heard, no guarding or rebound tenderness SKIN: No Rash or ecchymoses EXTREMITIES: left forearm in a splint and tenderness is noted, No edema, able to move all 4 extremities, pedal pulses palpated Results: Labs 01/05/25 10:03 01/05/25 10:03 Labs: Short CBC 01/05/25 01/05/25 Range/Units 02:43 10:03 WBC 8.9 5.4 (3.6-11.0) Thou/mm3 Hgb 11.5 L 10.0 L (12.0-16.0) g/dL Hct 33.4 L 29.3 L (36.0-46.0) % Plt Count 204 159 D (140-440) Thou/mm3 BMP 01/05/25 02:43 Sodium 135 L Potassium 3.0 L Chloride 100 Carbon Dioxide 21.7 BUN 6 L Creatinine 0.9 Glucose 171 H Calcium 8.6 Cardiac Enzymes 01/05/25 Range/Units 02:43 Troponin I < 0.020 (0.0-0.045) ng/mL Liver Function 01/05/25 Range/Units 02:43 Total Bilirubin 1.5 H (0.3-1.2) mg/dL AST 48 H (0-34) U/L ALT 32 (10-49) U/L Alkaline Phosphatase 77 (46-116) U/L Albumin 4.4 (3.4-4.8) gm/dL Urine 01/05/25 Range/Units 03:10 Urine Color Lt-Yellow (Lt Yel-Yel) Urine Clarity Clear (Clear/Hazy) Urine pH 6.5 (5.0-7.0) Ur Specific [place] 1.019 (1.001-1.035) Urine Protein Trace (Neg - Trace) Urine Glucose (UA) Negative (Negative) Quality Measures Quality Measures none (See MDM) Advance care planning discussed with:: patient Medications Home Medications and Allergies Home Medications ?Medication ?Instructions ?Recorded ?Confirmed ?Type escitalopram oxalate 10 mg tablet 10 mg PO QDAY 01/05/25 History hydrochlorothiazide 25 mg tablet 25 mg PO QDAY 5 01/05/25 History hydroxyzine HCl 25 mg tablet 25 mg PO BID PRN anxiety 01/05/25 01/05/25 History Allergies Allergy/AdvReac Type Severity Reaction Status Date / Time No Known Allergies Allergy Verified 08/17/23 16:45 Visit Medications Acetaminophen (Acetaminophen 325 Mg Tablet) 650 mg PO Q6H PRN PRN Reason: Fever >101.5, pain 1-3 Stop: 02/04/25 09:47 Heparin Sodium (Porcine) (Heparin Sod Inj 5000 Unit/Ml Vial) 5,000 unit SC Q8HR LYNDA Stop: 01/19/25 13:59 Ondansetron HCl (Ondansetron Inj 2 Mg/Ml Inj 2 Ml) 4 mg IV Q6H PRN; Protocol PRN Reason: NAUSEA OR VOMITING Stop: 02/04/25 09:47 Oxycodone/Acetaminophen (Oxycodone/Apap 5/325 Tablet) 1 tab PO Q6H PRN PRN Reason: Pain Scale 4-10 (Moderate Stop: 01/10/25 09:47 Discontinued Medications Acetaminophen (Acetaminophen 325 Mg Tablet) 650 mg PO X1 ONE Stop: 01/05/25 02:34 Last Admin: 01/05/25 02:55 Dose: 650 mg Acetaminophen (Acetaminophen 500 Mg Tablet) 1,000 mg PO X1 ONE Stop: 01/05/25 04:16 Last Admin: 01/05/25 04:14 Dose: Not Given Sodium Chloride (Ns) 1,503 mls @ 1,503 mls/hr 30 ml/kg infuse over 60 min (1503 ml) IV .Q1H ONE Stop: 01/05/25 03:31 Last Infusion: 01/05/25 03:38 Dose: Infused Ceftriaxone Sodium/Dextrose (Rocephin/D5w 1gm Iv Premix) 1 gm in 50 mls @ 100 mls/hr IV X1 ONE Stop: 01/05/25 03:20 Last Infusion: 01/05/25 03:26 Dose: Infused Potassium Chloride (Kcl Ivpb) 10 meq in 100 mls @ 100 mls/hr IV Q1H LYNDA Stop: 01/05/25 06:32 Last Infusion: 01/05/25 10:13 Dose: Infused Sodium Chloride (Ns) 1,000 mls @ 999 mls/hr IV .Q1H1M ONE Stop: 01/05/25 09:09 Last Infusion: 01/05/25 10:14 Dose: Infused Lorazepam (Lorazepam 2 Mg/Ml Vial) 2 mg IVP X1 ONE Stop: 01/05/25 04:10 Last Admin: 01/05/25 04:18 Dose: 2 mg Ondansetron HCl (Ondansetron Inj 2 Mg/Ml Inj 2 Ml) 4 mg IV X1 ONE; Protocol Stop: 01/05/25 04:33 Last Admin: 01/05/25 05:08 Dose: 4 mg Ondansetron HCl (Ondansetron Inj 2 Mg/Ml Inj 2 Ml) 4 mg IV X1 ONE; Protocol Stop: 01/05/25 06:01 Last Admin: 01/05/25 06:11 Dose: Not Given Potassium Chloride (Potassium Chloride 20 Meq Tabcr) 40 meq PO X1 ONE Stop: 01/05/25 04:10 Last Admin: 01/05/25 04:36 Dose: Not Given Assessment & Plan Plan Ms. Beltrán is a 69-year-old female with past medical history significant for hypertension, anxiety disorder with recurrent panic attacks presented to the ED due to intractable vomiting since yesterday and diarrhea for the past 3 days. Patient states that she has been having recurrent falls as well for the last 3 days. Patient states that for the past few days she has noticed she has mild tenderness on the right side of her chest and her left arm is also been hurting. #Intractable vomiting #Gastroenteritis, likely viral #lactic acidosis - resolved #Hypokalemia #Hypocalcemia - Patient states for the past 3 days she has been having diarrhea and since yesterday she has been having vomiting nonstop all day. On admission pt has a fever of 101.9. Patient denies any recent travels or sick contacts - Potassium on admission is 3.0 - In the ED patient received 2.5 L NS and a dose of Rocephin -EKG: sinus tachycardia without acute ST or T wave changes - lactate 3.4 ->2.1 ->0.9 Plan: - Continue oral hydration encourage fluid intake if tolerating - Antiemetics as needed -Electrolytes repleted - No antibiotics right now due to no WBC count as well as patient is afebrile currently #Distal radial fracture, left #Multiple right rib fractures #Ground-level fall -Patient states she had ground-level fall 2 to 3 days ago and has been complaining of right-sided chest pain -Imaging is evident of 3 rib fractures and left distal radial fracture Plan -Pain control as needed -Consulted orthopedic surgeon, for evaluation of if patient is not a surgical candidate -Incentive spirometry, encouraged patient to use to help prevent pulmonary complications such as atelectasis and helps expand lungs and prevent lung collapse #Microcytic anemia - Hemoglobin 10.0, hematocrit 29.3, MCV 70 -No signs of acute bleeding patient denies hematemesis, melena or hematochezia -Will hold chemical anticoagulation -Will continue to monitor daily CBC #Primary Hypertension -Patient's home medication include hydrochlorothiazide 25 mg daily - Will hold home hydrochlorothiazide due to hypokalemia and will start patient on amlodipine 10 mg daily #Anxiety #Panic attacks - Patient's home medications include hydroxyzine and escitalopram however patient states hydroxyzine does not really help - Escitalopram 10 mg daily and will continue to monitor #Cholelithiasis -gallblader US showed Multiple gallstones, Gallbladder sludge and negative for cholecytitis, however pt is asymptomatic and does not complain of RUQ abdominal pain -Pt will need out patient follow with general surgery Health Maintenance Disposition: [facility] for observation DVT Prophylaxis: SCD QSHIFT GI Prophylaxis: not indicated Diet: regular diet Lines: Peripheral lines Code status: Full Assessment and plan discussed with my senior resident Dr. Valdez & attending physician Dr. Marce Reyes (PGY-1)- Internal medicine resident
[2025-01-05 10:33] LABS: Alanine Aminotransferase 26 U/L (10-49); Albumin, Serum 3.9 gm/dL (3.4-4.8); Albumin/Globulin Ratio 1.6 (1.2-2.2); Alkaline Phosphatase 66 U/L (46-116); Anion Gap 9 (7-16); Aspartate Amino Transferase 38 U/L (0-34); BUN/Creatinine Ratio 7 Ratio (12-20); Bilirubin,Total 1.9 mg/dL (0.3-1.2); Blood Urea Nitrogen < 5 mg/dL (9-23); Calcium 7.7 mg/dL (8.3-10.6); Calcium (Corrected) 7.8 mg/dL (8.5-10.1); Carbon Dioxide 23.5 mMol/L (20.0-31.0); Chloride 108 mMol/L (98-107); Creatinine (Component) 0.7 mg/dL (0.6-1.3); Estimated Creatinine Clearance 76.2 mL/min (>60); Globulin 2.4 gm/dL (2.3-3.5); Glucose 127 mg/dL (74-106); Osmolality,Calculated 278 (275-295); Potassium 3.3 mMol/L (3.4-5.1); Sodium 140 mMol/L (136-145); Total Protein 6.3 gm/dL (5.7-8.2); eGFR > 60 See Note
--- NOTE | 2025-01-05 12:13 | PC.NURSE ---
REPORT CALLED TO SUSAN HADDAD ON MED SURG. ALL QUESTIONS ANSWERED.
[2025-01-05] MEDS: oxyCODONE/APAP 5/325 TABLET 1 TAB PO ×2 (12:51→20:20)
[2025-01-05] MEDS: HEPARIN SOD INJ 5000 UNIT/ML VIAL SC (13:27)
[2025-01-05] MEDS: amLODIPine BESYLATE 5 MG TABLET 10 MG PO (15:26)
[2025-01-05] MEDS: CALCIUM CARBONATE 600 MG TABLET PO (16:59)
[2025-01-05] MEDS: POTASSIUM CHLORIDE 20 mEq TABCR 40 MEQ PO (16:59)
[2025-01-05] MEDS: LORazepam 0.5 MG TABLET 1 MG PO (18:32)
--- NOTE | 2025-01-05 19:00 | PC.NURSE ---
During shift report pt had pulled off splint on left arm, declined to put back on.
--- NOTE | 2025-01-05 20:20 | PC.NURSE ---
Attempted to place splint back on pt, pt declined stated she will put on tomorrow. Per pt was too tight and she could feel it in her heart throbbing so she removed. Offered to put on looser pt refused stated tomorrow and it causes more pain. Provided pt with Percocet for c/o pain.
--- NOTE | 2025-01-05 20:50 | PC.NURSE ---
Contacted Dr. Velez regarding pt c/o 06/20 pain to right side chest (rib fx) and left arm, states that does not go away and that she is having a lot of anxiety, she feels like I'm going to , per pt this is how she feels when she gets a lot of anxiety and takes medication at home for it. Pt HR had been >100 throughout day and during 1999 vitals reading at 122, recheck while resting in bed rate at 115. to input new orders for pt.
[2025-01-05] MEDS: MORPHINE SULF INJ 10 MG/ML VIAL IVP (21:35)
[2025-01-05] MEDS: hydrOXYzine HCL 25 MG TABLET PO (21:35)
[2025-01-06] VITALS (11 sets, daily range): BP systolic 130–161; BP diastolic 71–91; PULSE 87–118; RESP 16–94; TEMP 36.1–37.1; O2SAT 95
[2025-01-06] MEDS: oxyCODONE/APAP 5/325 TABLET 1 TAB PO ×2 (05:27→15:03)
[2025-01-06 05:34] LABS: Basophils # (Auto) 0.1 Thou/mm3 (0.0-0.2); Basophils % (Auto) 1 % (0-2.5); Eosinophils # (Auto) 0.1 Thou/mm3 (0.0-0.5); Eosinophils % (Auto) 2 % (0-10); Hematocrit 30.2 % (36.0-46.0); Hemoglobin 9.9 g/dL (12.0-16.0); Immature Granulocytes % (Auto) 1 % (0-0); Immature Granulocytes Auto 0.02 Thou/mm3 (0.00-0.00); Lymphocytes % (Auto) 22 % (10-50); Mean Corpuscular HGB Conc 32.8 g/dl (31.0-37.0); Mean Corpuscular Volume 83 fL (80-100); Monocytes # (Auto) 0.4 Thou/mm3 (0.0-0.8); Monocytes % (Auto) 10 % (0-12); Neutrophils # (Auto) 2.9 Thou/mm3 (1.8-7.7); Neutrophils % (Auto) 65 % (37-80); Nucleated Red Blood Cell % 0 /100 WBC (0); Platelet Count 140 Thou/mm3 (140-440); RDW Standard Deviation 44.3 fL (36.4-46.3); Red Blood Count 3.66 Miln/mm3 (4.00-5.20); White Blood Count 4.4 Thou/mm3 (3.6-11.0)
[2025-01-06 06:04] LABS: Alanine Aminotransferase 23 U/L (10-49); Albumin, Serum 3.7 gm/dL (3.4-4.8); Albumin/Globulin Ratio 1.5 (1.2-2.2); Alkaline Phosphatase 62 U/L (46-116); Anion Gap 7 (7-16); Aspartate Amino Transferase 32 U/L (0-34); BUN/Creatinine Ratio 8 Ratio (12-20); Bilirubin,Total 1.3 mg/dL (0.3-1.2); Blood Urea Nitrogen < 5 mg/dL (9-23); Calcium 8.2 mg/dL (8.3-10.6); Calcium (Corrected) 8.4 mg/dL (8.5-10.1); Carbon Dioxide 28.2 mMol/L (20.0-31.0); Cardiac Risk Estimate 2.4 RATIO (3.7-5.6); Chloride 106 mMol/L (98-107); Cholesterol 218 mg/dL (132-200); Creatinine (Component) 0.6 mg/dL (0.6-1.3); Estimated Creatinine Clearance 89.7 mL/min (>60); Globulin 2.5 gm/dL (2.3-3.5); Glucose 103 mg/dL (74-106); HDL Cholesterol 91 mg/dL (40-60); LDL Cholesterol,Calculated 94 mg/dL (0-130); Osmolality,Calculated 278 (275-295); Phosphorous 2.4 mg/dL (2.4-5.1); Potassium 3.5 mMol/L (3.4-5.1); Sodium 141 mMol/L (136-145); Thyroid Stimulating Hormone 3.13 uIU/mL (0.55-4.78); Total Protein 6.2 gm/dL (5.7-8.2); Triglycerides 166 mg/dL (30-150); eGFR > 60 See Note
[2025-01-06] MEDS: hydrOXYzine HCL 25 MG TABLET PO ×2 (08:06→20:09)
[2025-01-06] MEDS: amLODIPine BESYLATE 5 MG TABLET 10 MG PO (08:06)
[2025-01-06] MEDS: ESCITALOPRAM OXALATE 10 MG TABLET PO (08:07)
--- NOTE | 2025-01-06 12:08 | PC.SS ---
SS follow up note; Pending Dr. Villarreal's evaluation. Patient will discharge back home when medically cleared.
[2025-01-06] MEDS: ONDANSETRON INJ 2 MG/ML INJ 2 ML 4 MG IV (14:06)
--- NOTE | 2025-01-06 14:27 | ESPR_ITS ---
<Statement entered by Manisha Zheng MD - 01/10/25 08:12> I reviewed above note and agree with findings and plans. I have also personally examined the patient with medicine team and went over assessment and plan with medical team including internet marketing analyst and resident physician. Documentation for date of: 01/06/25 Subjective Subjective Interval history: Patient was seen and examined at the bedside. No acute overnight events. Patient was evaluated by orthopedic surgery and was recommended to follow-up outpatient for planning of surgery for her left wrist. Patient deemed to be stable for discharge as her symptoms of nausea and vomiting have resolved and she have not had any bowel movements today however she developed nausea and vomiting after lunch and discharge was held. Lipase was ordered and she was started on Protonix. Will continue monitoring. Exam Vital Signs Temp Pulse Resp BP Pulse Ox O2 Del Method 97.2 F 118 H 18 161/77 H 95 Room Air 01/06/25 11:35 01/06/25 12:00 01/06/25 11:35 01/06/25 11:35 01/06/25 11:35 01/06/25 11:35 Narrative Exam Gen: Well-developed and well-nourished obese female. HEENT: NCAT, PERRLA, EOMI, MMM, anicteric conjunctivae. CVS: normal S1 and S2. Regular tachycardia. No M/R/G. Resp: CTA B/L. No rhonchi, rales, crackles or wheezing. Abd: soft, obese, non-tender, non-distended. BS+ in all 4 quadrants. MSK: Good ROM in BUE & BLE. Left forearm in splint and is tender on ROM. Pain over right ribs, worsening with respiration. No edema or rash. Neuro: CN II-XII grossly intact. Strength 5/5 in BUE & BLE. Alert and oriented x3. Psych: appropriate mood and affect. Objective Labs 01/06/25 04:47 01/06/25 04:47 Labs: Laboratory Results - last 24 hr 01/06/25 04:47 WBC 4.4 RBC 3.66 L Hgb 9.9 L Hct 30.2 L MCV 83 MCH 27.0 MCHC 32.8 RDW Std Deviation 44.3 Plt Count 140 Neut % (Auto) 65 Lymph % (Auto) 22 [place] % (Auto) 10 Eos % (Auto) 2 Baso % (Auto) 1 Neut # (Auto) 2.9 Lymph # (Auto) 1.0 [place] # (Auto) 0.4 Eos # (Auto) 0.1 Baso # (Auto) 0.1 Immature Gran # (Auto) 0.02 H Absolute Nucleated RBC 0.00 Immature Gran % 1 H Nucleated RBC % 0 Sodium 141 Potassium 3.5 Chloride 106 Carbon Dioxide 28.2 Anion Gap 7 BUN < 5 L Creatinine 0.6 Estim Creat Clear Calc 89.7 eGFR > 60 BUN/Creatinine Ratio 8 L Glucose 103 Calculated Osmolality 278 Calcium 8.2 L Corrected Calcium 8.4 L Phosphorus 2.4 Magnesium 2.0 Total Bilirubin 1.3 H D AST 32 ALT 23 Alkaline Phosphatase 62 Total Protein 6.2 Albumin 3.7 Globulin 2.5 Albumin/Globulin Ratio 1.5 Triglycerides 166 H Cholesterol 218 H LDL Cholesterol, Calc 94 HDL Cholesterol 91 H Cholesterol/HDL Ratio 2.4 L TSH 3.13 Quality Measures Quality Measures VTE prophylaxis Advance care planning discussed with:: patient and child Assessment & Plan Assessment Current Active Medications: Generic Name Dose Route Start Last Admin Trade Name Freq PRN Reason Stop Dose Admin Acetaminophen 650 mg 01/05/25 09:48 Acetaminophen 325 Mg Tablet PO 02/04/25 09:47 Q6H PRN Fever >101.5, pain 1-3 Amlodipine Besylate 10 mg 01/05/25 15:15 01/06/25 08:06 Amlodipine Besylate 5 Mg Tablet PO 02/04/25 15:14 10 mg QDAY LYNDA Administration Escitalopram Oxalate 10 mg 01/06/25 09:00 01/06/25 08:07 Escitalopram Oxalate 10 Mg Tablet PO 02/05/25 08:59 10 mg QDAY LYNDA Administration Hydroxyzine HCl 25 mg 01/05/25 21:00 01/06/25 08:06 Hydroxyzine Hcl 25 Mg Tablet PO 02/04/25 20:59 25 mg BID LYNDA Administration Lorazepam 1 mg 01/05/25 18:26 01/05/25 18:32 Lorazepam 0.5 Mg Tablet PO 01/10/25 18:25 1 mg Q8HR PRN Administration ANXIETY Ondansetron HCl 4 mg 01/05/25 09:48 01/06/25 14:06 Ondansetron Inj 2 Mg/Ml Inj 2 Ml IV 02/04/25 09:47 4 mg Q6H PRN Administration NAUSEA OR VOMITING Protocol Oxycodone/Acetaminophen 1 tab 01/05/25 09:48 01/06/25 05:27 Oxycodone/Apap 5/325 Tablet PO 01/10/25 09:47 1 tab Q6H PRN Administration Pain Scale 4-10 (Moderate Plan Ms. Garcia is a 69-year-old female with past medical history significant for hypertension, anxiety disorder with recurrent panic attacks presented to the ED due to intractable vomiting since yesterday and diarrhea for the past 3 days. Patient states that she has been having recurrent falls as well for the last 3 days. Patient states that for the past few days she has noticed she has mild tenderness on the right side of her chest and her left arm is also been hurting. #Intractable vomiting. #Gastroenteritis, likely viral. #Cholelithiasis. #Cholecystitis ruled out. #Hyperbilirubinemia. - gallblader US showed multiple gallstones, Gallbladder sludge and negative for cholecytitis, however pt is asymptomatic and does not complain of RUQ abdominal pain. - Patient states for the past 3 days she has been having diarrhea and since yesterday she has been having vomiting nonstop all day. On admission pt has a fever of 101.9. Patient denies any recent travels or sick contacts. T. bili 1.5. - In the ED patient received 2.5 L NS and a dose of Rocephin. - No antibiotics right now due to no WBC count as well as patient is afebrile currently. - lactate 3.4 ->2.1 ->0.9. Plan: - Continue oral hydration encourage fluid intake if tolerating. - Antiemetics as needed. - lipase ordered. - started on protonix. - CLD, advance as tolerated. #Distal radial fracture, left. #Multiple right rib fractures. #Ground-level fall. - Patient states she had ground-level fall 2 to 3 days ago and has been complaining of right-sided chest pain. - Imaging is evident of 3 rib fractures and left distal radial fracture. Plan - Pain control as needed. - Consulted orthopedic surgeon, patient will need surgery outpatient. - Incentive spirometry, encouraged patient to use to help prevent pulmonary complications such as atelectasis and helps expand lungs and prevent lung collapse. #lactic acidosis, resolved. #Hypokalemia, resolved. #Hypocalcemia. - Potassium on admission is 3.0, corrected Ca 7.8, LA Plan: - monitor with daily labs and replete as needed. #Microcytic anemia. - Hemoglobin 10.0, hematocrit 29.3, MCV 70. - No signs of acute bleeding patient denies hematemesis, melena or hematochezia. Plan: - Will continue to monitor daily CBC. #Primary Hypertension. - Patient's home medication include hydrochlorothiazide 25 mg daily. Plan: - Will hold home hydrochlorothiazide due to hypokalemia and will start patient on amlodipine 10 mg daily. #Anxiety. #Panic attacks. - Patient's home medications include hydroxyzine and escitalopram however patient states hydroxyzine does not really help. Plan: - Escitalopram 10 mg daily and will continue to monitor. - lorazepam as needed. Health Maintenance: Disposition: [facility] for observation. DVT Prophylaxis: lovenox. GI Prophylaxis: protonix. Diet: CLD, advance as tolerated. Lines: Peripheral lines. Code status: Full code. Plan of care discussed with attending Dr. Zheng. Noé Tidwell MD, PGY 2. Disclaimer: This note was dictated by speech recognition. Minor errors in tree feller operator may be present due to voice recognition software.
[2025-01-06] MEDS: PANTOPRAZOLE INJ 40 MG VIAL IV (14:51)
[2025-01-06 15:57] LABS: Lipase 38 U/L (12-53)
--- NOTE | 2025-01-06 17:23 | PC.NURSE ---
Pt refusing care of left wrist splint in place for left wrist. Pt was provided with instruction via assessment technician services at the bedside. Pt refuses to wear the split due to her anxiety at night. Pt is willing to wear it only during the day. Pt refusing at this time.
[2025-01-06] MEDS: ACETAMINOPHEN 325 MG TABLET 650 MG PO (19:28)
[2025-01-07] VITALS (13 sets, daily range): BP systolic 128–172; BP diastolic 67–97; PULSE 82–113; RESP 15–96; TEMP 36.1–37.1; O2SAT 95–96
[2025-01-07] MEDS: oxyCODONE/APAP 5/325 TABLET 1 TAB PO ×2 (03:28→18:08)
--- NOTE | 2025-01-07 03:41 | PC.NURSE ---
Dr. Velez notified regarding elevated BP. Pain medication administered. Notified primary RN to recheck BP.
--- NOTE | 2025-01-07 04:39 | PC.NURSE ---
Notify MD Velez of pt BP 164/89 HR of 105. No new orders made.
[2025-01-07 05:46] LABS: Basophils # (Auto) 0.1 Thou/mm3 (0.0-0.2); Basophils % (Auto) 1 % (0-2.5); Eosinophils # (Auto) 0.2 Thou/mm3 (0.0-0.5); Eosinophils % (Auto) 4 % (0-10); Hematocrit 31.4 % (36.0-46.0); Immature Granulocytes % (Auto) 0 % (0-0); Immature Granulocytes Auto 0.01 Thou/mm3 (0.00-0.00); Lymphocytes # (Auto) 0.7 Thou/mm3 (1.0-4.8); Lymphocytes % (Auto) 13 % (10-50); Mean Corpuscular HGB Conc 31.8 g/dl (31.0-37.0); Mean Corpuscular Hemoglobin 26.8 pg (25.0-35.0); Mean Corpuscular Volume 84 fL (80-100); Monocytes # (Auto) 0.5 Thou/mm3 (0.0-0.8); Monocytes % (Auto) 9 % (0-12); Neutrophils # (Auto) 3.9 Thou/mm3 (1.8-7.7); Neutrophils % (Auto) 73 % (37-80); Nucleated Red Blood Cell % 0 /100 WBC (0); Platelet Count 137 Thou/mm3 (140-440); RDW Standard Deviation 44.9 fL (36.4-46.3); Red Blood Count 3.73 Miln/mm3 (4.00-5.20); White Blood Count 5.4 Thou/mm3 (3.6-11.0)
[2025-01-07 06:56] LABS: Alanine Aminotransferase 22 U/L (10-49); Albumin, Serum 3.9 gm/dL (3.4-4.8); Albumin/Globulin Ratio 1.6 (1.2-2.2); Alkaline Phosphatase 60 U/L (46-116); Anion Gap 9 (7-16); Aspartate Amino Transferase 27 U/L (0-34); BUN/Creatinine Ratio 7 Ratio (12-20); Bilirubin,Total 0.7 mg/dL (0.3-1.2); Blood Urea Nitrogen < 5 mg/dL (9-23); Calcium 8.5 mg/dL (8.3-10.6); Calcium (Corrected) 8.6 mg/dL (8.5-10.1); Carbon Dioxide 26.6 mMol/L (20.0-31.0); Chloride 105 mMol/L (98-107); Creatinine (Component) 0.7 mg/dL (0.6-1.3); Estimated Creatinine Clearance 76.9 mL/min (>60); Globulin 2.4 gm/dL (2.3-3.5); Glucose 176 mg/dL (74-106); Magnesium 1.9 mg/dL (1.6-2.6); Osmolality,Calculated 282 (275-295); Phosphorous 3.3 mg/dL (2.4-5.1); Potassium 3.3 mMol/L (3.4-5.1); Sodium 141 mMol/L (136-145); Total Protein 6.3 gm/dL (5.7-8.2); eGFR > 60 See Note
--- NOTE | 2025-01-07 08:39 | PC.NURSE ---
spoke with Idalia in Endo, ERCP cancel for today, order soft diet and place patient NPO aftermidnight.
[2025-01-07] MEDS: Magnesium Sulfate 2 GM Ivpb 2 GM/50 ML BAG IV (09:13)
[2025-01-07] MEDS: POTASSIUM CHLORIDE 20 mEq TABCR 40 MEQ PO (09:14)
[2025-01-07] MEDS: ACETAMINOPHEN 325 MG TABLET 650 MG PO (09:14)
[2025-01-07] MEDS: ESCITALOPRAM OXALATE 10 MG TABLET PO (09:15)
[2025-01-07] MEDS: amLODIPine BESYLATE 5 MG TABLET 10 MG PO (09:15)
[2025-01-07] MEDS: hydrOXYzine HCL 25 MG TABLET PO (09:15)
[2025-01-07] MEDS: ENOXAPARIN SOD INJ 40 MG/0.4 ML SYRINGE SC (09:16)
[2025-01-07] MEDS: PANTOPRAZOLE INJ 40 MG VIAL IV (09:27)
--- NOTE | 2025-01-07 10:46 | ECHO_ITS ---
Transthoracic Echo Report Ht (in): 62 Wt (lb): 190 Exam Location: Portable Status: Inpatient Impregnating Tank Operator: SALVATORE Judge^^^^ Indications: Procedure Performed: BP: / HR: MEASUREMENTS (Male / Female) Normal Values 2D ECHO LV Diastolic Diameter PLAX 3.8 cm 4.2 - 5.9 / 3.9 - 5.3 cm LV Systolic Diameter PLAX 2.5 cm IVS Diastolic Thickness 1.0 cm 0.6 - 1.0 / 0.6 - 0.9 cm LVPW Diastolic Thickness 0.9 cm 0.6 - 1.0 / 0.6 - 0.9 cm LV Relative Wall Thickness 0.5 LVOT Diameter 1.6 cm Aortic Root Diameter 3.1 cm LA Systolic Diameter LX 2.8 cm 3.0 - 4.0 / 2.7 - 3.8 cm LA Volume Index 24.8 cm?/m? 16 - 28 cm?/m? DOPPLER AV Peak Velocity 167.0 cm/s AV Peak Gradient 11.2 mmHg AV Mean Gradient 6.0 mmHg AV Velocity Time Integral 28.0 cm AI Peak Velocity 325.0 cm/s AI Peak Gradient 42.3 mmHg AI Pressure Half Time 349.0 ms LVOT Peak Velocity 121.0 cm/s LVOT Peak Gradient 5.9 mmHg LVOT Velocity Time Integral 28.7 cm AV Area Cont Eq vti 2.1 cm? AV Area Cont Eq pk 1.5 cm? MV Peak Velocity 131.0 cm/s MV Peak Gradient 6.9 mmHg MV Mean Velocity 81.2 cm/s MV Mean Gradient 3.0 mmHg MV Area PHT 5.1 cm? Mitral E Point Velocity 69.4 cm/s Mitral A Point Velocity 109.0 cm/s Mitral E to A Ratio 0.6 LV E' Lateral Velocity 9.0 cm/s Mitral E to LV E' Lateral Ratio 7.7 LV E' Septal Velocity 7.7 cm/s Mitral E to LV E' Septal Ratio 9.1 TR Peak Velocity 257.7 cm/s TR Peak Gradient 26.6 mmHg PV Peak Velocity 109.0 cm/s PV Peak Gradient 4.8 mmHg RVOT Peak Velocity 59.9 cm/s FINDINGS Left Ventricle Normal left ventricular size, wall thickness, systolic function with no obvious regional wall motion abnormalities. There is grade I diastolic dysfunction of the left ventricle (impaired relaxation pattern). The left ventricular ejection fraction is normal, estimated at 55-60%. Right Ventricle The right ventricle is normal in size and systolic function. The estimated right ventricular systolic pressure, 27 mmHg. Left Atrium The left atrium is normal by two-dimensional, color flow and Doppler imaging with no structural abnormalities, no thrombus formation present. Right Atrium The right atrium is normal by two-dimensional imaging, color flow and Doppler imaging with no structural abnormalities, no thrombus formation present. Atrial Septum The interatrial septum appears normal with no evidence of a shunt. Aorta The aorta is normal by two-dimensional, color flow and Doppler interrogation. Mitral Valve Trace to mild mitral regurgitation. Mild mitral annular calcification. Aortic Valve Aortic valve sclerosis. Tricuspid Valve There is mild tricuspid valve regurgitation. Pulmonic Valve The pulmonic valve is not well visualized. Vessels The pulmonary artery appears normal. The inferior vena cava pulmonary and hepatic veins appear normal. Pericardium The pericardium is normal by two-dimensional imaging. There is no significant pericardial effusion. CONCLUSIONS Indication: Sinus Tachycardia Normal LV size and function with EF 55-60%. Stage I Diastolic Dysfunction. Normal RV size and function with estimated RVSP 27 mmHg. Mild MR & MAC. Mild TR. Peter Diaz (Electronically Signed) Final Date: 07 January 2025 18:28
[2025-01-07] MEDS: hydrOXYzine HCL 25 MG TABLET 50 MG PO ×2 (14:38→21:48)
--- NOTE | 2025-01-07 16:17 | PC.SS ---
SS follow up note; Patient is pending an echo, possible discharge tomorrow.
--- NOTE | 2025-01-07 17:28 | ESPR_ITS ---
<Statement entered by Manisha Zheng MD - 01/12/25 08:36> I reviewed above note and agree with findings and plans. I have also personally examined the patient with medicine team and went over assessment and plan with medical team including commercial intern and resident physician. <Statement entered by Noé Tidwell MD - 01/12/25 08:32> Senior Resident Attestation: I supervised/discussed management plan with commercial intern physician Dr. Reyes, and was involved in the care of this patient. I personally saw and examined the patient and discussed the assessment and plan with the entire medicine team, including my attending. I agree with the assessment and plan as documented. Patient's care was discussed with attending physician, Dr. Zheng. Noé Tidwell MD PGY-2. Documentation for date of: 01/07/25 Subjective Subjective Interval history: No acute overnight events reported. Patient seen and examined at bedside this morning. Patient states that she no longer has diarrhea and had a formed bowel movement this morning. She also endorses to complete resolution of the nausea and vomiting and okay to advance diet for lunch today. Patient continues to have sinus tachycardia, previous EKG is reviewed with sinus tachycardia, due to unknown etiology will order further workup of TSH, EKG and echo to rule out any cardiac causes of tachycardia. Labs are significant with potassium 3.3 and repleted and magnesium 1.9 repleted 2 g and hemoglobin is stable at 10.0 and hematocrit 31.4. Due to patient's uncontrolled anxiety we will increase the hydroxyzine to 50 3 times daily and will add metoprolol. Patient has no other complaints. Exam Vital Signs Temp Pulse Resp BP Pulse Ox O2 Del Method 97.5 F 90 20 142/76 H 95 Room Air 01/07/25 15:45 01/07/25 16:00 01/07/25 15:45 01/07/25 15:45 01/07/25 15:45 01/07/25 15:45 Narrative Exam GENERAL: A&Ox3 . obese, Tajik speaking female, cooperative, does not appear to be in acute distress NEURO: no focal neurological deficits HEENT: Atraumatic, Normocephalic. mucous membranes moist. Eyes open, symmetrical, & clear HEART: Normal Heart Sounds LUNGS: Clear to auscultation with no wheezing or crackles. ABDOMEN: soft, non-distended, non-tender, bowel sounds heard, no guarding or rebound tenderness SKIN: No Rash or ecchymoses EXTREMITIES: left forearm in a splint and tenderness is noted, No edema, able to move all 4 extremities, pedal pulses palpated Objective Labs 01/07/25 05:20 01/07/25 05:20 Labs: Laboratory Results - last 24 hr 01/07/25 05:20 WBC 5.4 RBC 3.73 L Hgb 10.0 L Hct 31.4 L MCV 84 MCH 26.8 MCHC 31.8 RDW Std Deviation 44.9 Plt Count 137 L Neut % (Auto) 73 Lymph % (Auto) 13 [place] % (Auto) 9 Eos % (Auto) 4 Baso % (Auto) 1 Neut # (Auto) 3.9 Lymph # (Auto) 0.7 L [place] # (Auto) 0.5 Eos # (Auto) 0.2 Baso # (Auto) 0.1 Immature Gran # (Auto) 0.01 H Absolute Nucleated RBC 0.00 Immature Gran % 0 Nucleated RBC % 0 Sodium 141 Potassium 3.3 L Chloride 105 Carbon Dioxide 26.6 Anion Gap 9 BUN < 5 L Creatinine 0.7 Estim Creat Clear Calc 76.9 eGFR > 60 BUN/Creatinine Ratio 7 L Glucose 176 H D Calculated Osmolality 282 Calcium 8.5 Corrected Calcium 8.6 Phosphorus 3.3 Magnesium 1.9 Total Bilirubin 0.7 D AST 27 ALT 22 Alkaline Phosphatase 60 Total Protein 6.3 Albumin 3.9 Globulin 2.4 Albumin/Globulin Ratio 1.6 Quality Measures Quality Measures VTE prophylaxis Advance care planning discussed with:: patient Assessment & Plan Assessment Current Active Medications: Generic Name Dose Route Start Last Admin Trade Name Brandi PRN Reason Stop Dose Admin Acetaminophen 650 mg 01/05/25 09:48 01/07/25 09:14 Acetaminophen 325 Mg Tablet PO 02/04/25 09:47 650 mg Q6H PRN Administration Fever >101.5, pain 1-3 Amlodipine Besylate 10 mg 01/05/25 15:15 01/07/25 09:15 Amlodipine Besylate 5 Mg Tablet PO 02/04/25 15:14 10 mg QDAY LYNDA Administration Enoxaparin Sodium 40 mg 01/07/25 09:00 01/07/25 09:16 Enoxaparin Sod Inj 40 Mg/0.4 Ml Syringe SC 01/21/25 08:59 40 mg QDAY LYNDA Administration Escitalopram Oxalate 10 mg 01/06/25 09:00 01/07/25 09:15 Escitalopram Oxalate 10 Mg Tablet PO 02/05/25 08:59 10 mg QDAY LYNDA Administration Hydroxyzine HCl 50 mg 01/07/25 14:00 01/07/25 14:38 Hydroxyzine Hcl 25 Mg Tablet PO 02/06/25 13:59 50 mg TID LYNDA Administration Lorazepam 1 mg 01/05/25 18:26 01/05/25 18:32 Lorazepam 0.5 Mg Tablet PO 01/10/25 18:25 1 mg Q8HR PRN Administration ANXIETY Ondansetron HCl 4 mg 01/05/25 09:48 01/06/25 14:06 Ondansetron Inj 2 Mg/Ml Inj 2 Ml IV 02/04/25 09:47 4 mg Q6H PRN Administration NAUSEA OR VOMITING Protocol Oxycodone/Acetaminophen 1 tab 01/05/25 09:48 01/07/25 03:28 Oxycodone/Apap 5/325 Tablet PO 01/10/25 09:47 1 tab Q6H PRN Administration Pain Scale 4-10 (Moderate Pantoprazole Sodium 40 mg 01/06/25 14:45 01/07/25 09:27 Pantoprazole Inj 40 Mg Vial IV 02/05/25 14:44 40 mg QDAY LYNDA Administration Plan Ms. Garcia is a 69-year-old female with past medical history significant for hypertension, anxiety disorder with recurrent panic attacks presented to the ED due to intractable vomiting since yesterday and diarrhea for the past 3 days. Patient states that she has been having recurrent falls as well for the last 3 days. Patient states that for the past few days she has noticed she has mild tenderness on the right side of her chest and her left arm is also been hurting. #Sinus Tachycardia, unknown etiology -On admission and previous admission EKG shows sinus tachycardia -Pt persistently have tachycardia Plan: -Ordered EKG and Echo to rule out cardiac causes of tachycardia -ordered TSH to rule out hyperthyroidism -Started metorpolol 12.5mg BID #Intractable vomiting - Resolved #Gastroenteritis, likely viral. #Cholelithiasis. #Cholecystitis ruled out. #Hyperbilirubinemia. - gallblader US showed multiple gallstones, Gallbladder sludge and negative for cholecytitis, however pt is asymptomatic and does not complain of RUQ abdominal pain. - Patient states for the past 3 days she has been having diarrhea and since yesterday she has been having vomiting nonstop all day. On admission pt has a fever of 101.9. Patient denies any recent travels or sick contacts. T. bili 1.5. - In the ED patient received 2.5 L NS and a dose of Rocephin. - No antibiotics right now due to no WBC count as well as patient is afebrile currently. - lactate 3.4 ->2.1 ->0.9. Plan: - Continue oral hydration encourage fluid intake if tolerating. - Antiemetics as needed. - lipase ordered. - started on protonix. - CLD, advance as tolerated. #Distal radial fracture, left. #Multiple right rib fractures. #Ground-level fall. - Patient states she had ground-level fall 2 to 3 days ago and has been complaining of right-sided chest pain. - Imaging is evident of 3 rib fractures and left distal radial fracture. Plan - Pain control as needed. - Consulted orthopedic surgeon, patient will need surgery outpatient. - Incentive spirometry, encouraged patient to use to help prevent pulmonary complications such as atelectasis and helps expand lungs and prevent lung collapse. #lactic acidosis, resolved. #Hypokalemia, resolved. #Hypocalcemia. - Potassium on admission is 3.0, corrected Ca 7.8, LA Plan: - monitor with daily labs and replete as needed. #Microcytic anemia. - Hemoglobin 10.0, hematocrit 29.3, MCV 70. - No signs of acute bleeding patient denies hematemesis, melena or hematochezia. Plan: - Will continue to monitor daily CBC. #Primary Hypertension. - Patient's home medication include hydrochlorothiazide 25 mg daily. Plan: - Will hold home hydrochlorothiazide due to hypokalemia and will start patient on amlodipine 10 mg daily. #Anxiety. #Panic attacks. - Patient's home medications include hydroxyzine and escitalopram however patient states hydroxyzine does not really help. Plan: -Escitalopram 10 mg daily and will continue to monitor. -lorazepam as needed -Increased home hydroxyzine to 50mg TID Health Maintenance: Disposition: [facility] for observation. DVT Prophylaxis: lovenox. GI Prophylaxis: protonix. Diet: CLD, advance as tolerated. Lines: Peripheral lines. Code status: Full code. Assessment and plan discussed with my senior resident Dr. Tidwell & attending physician Dr. Marce Reyes (PGY-1)- Internal medicine resident
--- NOTE | 2025-01-07 17:35 | EKG_ITS ---
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
[2025-01-07] MEDS: METOPROLOL TARTRATE 25 MG TABLET 12.5 MG PO (21:48)
[2025-01-08] VITALS: BP 122/66; PULSE 114; PULSE 90; RESP 23; TEMP 37.2; O2SAT 94
[2025-01-08] MEDS: oxyCODONE/APAP 5/325 TABLET 1 TAB PO ×2 (00:02→05:54)
[2025-01-08] MEDS: LOPERAMIDE 2 MG CAPSULE PO (00:02)
[2025-01-08 04:00] VITALS: BP 134/69; PULSE 86; RESP 20; TEMP 36.6; O2SAT 91
[2025-01-08 05:31] LABS: Immature Granulocytes % (Auto) 0 % (0-0); Immature Granulocytes Auto 0.02 Thou/mm3 (0.00-0.00); Nucleated Red Blood Cell % 0 /100 WBC (0)
[2025-01-08 05:36] LABS: Basophils % (Auto) 1 % (0-2.5); Eosinophils # (Auto) 0.2 Thou/mm3 (0.0-0.5); Eosinophils % (Auto) 5 % (0-10); Hematocrit 30.9 % (36.0-46.0); Hemoglobin 9.9 g/dL (12.0-16.0); Lymphocytes % (Auto) 18 % (10-50); Mean Corpuscular Hemoglobin 26.9 pg (25.0-35.0); Mean Corpuscular Volume 84 fL (80-100); Monocytes # (Auto) 0.5 Thou/mm3 (0.0-0.8); Monocytes % (Auto) 9 % (0-12); Neutrophils # (Auto) 3.5 Thou/mm3 (1.8-7.7); Neutrophils % (Auto) 67 % (37-80); Platelet Count 151 Thou/mm3 (140-440); RDW Standard Deviation 44.7 fL (36.4-46.3); Red Blood Count 3.68 Miln/mm3 (4.00-5.20); White Blood Count 5.2 Thou/mm3 (3.6-11.0)
[2025-01-08] MEDS: hydrOXYzine HCL 25 MG TABLET 50 MG PO (05:48)
[2025-01-08 05:58] LABS: Alanine Aminotransferase 20 U/L (10-49); Albumin, Serum 3.7 gm/dL (3.4-4.8); Albumin/Globulin Ratio 1.5 (1.2-2.2); Alkaline Phosphatase 56 U/L (46-116); Anion Gap 7 (7-16); Aspartate Amino Transferase 23 U/L (0-34); BUN/Creatinine Ratio 15 Ratio (12-20); Bilirubin,Total 0.7 mg/dL (0.3-1.2); Blood Urea Nitrogen 9 mg/dL (9-23); Calcium 8.4 mg/dL (8.3-10.6); Calcium (Corrected) 8.6 mg/dL (8.5-10.1); Carbon Dioxide 30.5 mMol/L (20.0-31.0); Chloride 104 mMol/L (98-107); Creatinine (Component) 0.6 mg/dL (0.6-1.3); Estimated Creatinine Clearance 89.7 mL/min (>60); Globulin 2.5 gm/dL (2.3-3.5); Glucose 102 mg/dL (74-106); Magnesium 2.1 mg/dL (1.6-2.6); Osmolality,Calculated 279 (275-295); Phosphorous 3.5 mg/dL (2.4-5.1); Sodium 141 mMol/L (136-145); Thyroid Stimulating Hormone 3.07 uIU/mL (0.55-4.78); Total Protein 6.2 gm/dL (5.7-8.2); eGFR > 60 See Note
[2025-01-08 08:00] VITALS: BP 156/81; PULSE 80; RESP 17; TEMP 36.2; O2SAT 94
[2025-01-08 09:08] VITALS: BP 156/81; PULSE 80
[2025-01-08] MEDS: ENOXAPARIN SOD INJ 40 MG/0.4 ML SYRINGE SC (09:08)
[2025-01-08] MEDS: ESCITALOPRAM OXALATE 10 MG TABLET PO (09:08)
[2025-01-08] MEDS: PANTOPRAZOLE INJ 40 MG VIAL IV (09:08)
[2025-01-08] MEDS: amLODIPine BESYLATE 5 MG TABLET 10 MG PO (09:08)
[2025-01-08 09:23] VITALS: BP 143/61; PULSE 101
[2025-01-08] MEDS: METOPROLOL TARTRATE 25 MG TABLET 12.5 MG PO (09:23)
--- NOTE | 2025-01-08 10:11 | PC.NURSE ---
Patient anxious getting dress states she wants to go home, Dr. Valdez at bedside. Patient is 1:1 sitter and is sitting in a chair waiting for her son Lyle. Son is aware and states his on his way to the hospital.
--- NOTE | 2025-01-08 11:17 | PC.NURSE ---
Patient refuse wheelchair, she is alert and oriented x3, she was accompanied by her son Lyle.
--- NOTE | 2025-01-08 11:51 | PC.NURSE ---
around 0950 patient removed field checker, Dr. Valdez made aware.
--- NOTE | 2025-01-08 16:01 | ESDS_ITS ---
<Statement entered by Manisha Zheng MD - 01/10/25 08:19> I reviewed above note and agree with findings and plans. I have also personally examined the patient with medicine team and went over assessment and plan with medical team including multicultural internship and resident physician. Planned Discharge Date 01/08/25 DS: Providers Provider Date of admission: 01/05/25 09:49 Primary care physician: Chidi Lehman PA-C Admitting Provider: Manisha Zheng MD Attending Provider on Admission: Manisha Zheng MD Consults: 01/05/25 15:18 Consult to Orthopedic Routine Comment: Consulting Provider: Pb Sherwood Attending Provider on DC: Suzanna Reyes MD Discharging Provider: Suzanna Reyes MD DS: Diagnosis Problem List Completed Was Problem List Reviewed/Reconciled?: Yes Hospital Course Hospital Course Hospital course: Ms. Beltrán is a 69-year-old female with past medical history significant for hypertension, anxiety disorder with recurrent panic attacks presented to the ED due to intractable nausea vomiting, diarrhea for 3 days. Patient also have been having recurrent falls for the last 3 days. Patient states that she often gets panic attacks at least once daily which causes her to get very weak in her arms and legs causing her recurrent falls. Imaging is evident of left distal radial metastasis fracture, and multiple right rib fractures, orthopedic surgeon is consulted and recommended surgery outpatient. Pt was also encouraged to continue to use incentive spirometry to prevent pulmonary complications such as atelectasis and helps the lungs to expand and prevent lung collapse. Pt's nausea vomiting completed resolved, pt's hospital stay was extended due to persistent tachycardia despite resolution of GI symptoms and potassium was repleted adequately. TSH was found to be within normal limits and echo cardiogram was ordered and findings are normal LV and RV size and function with EF 55-60%. Stage I Diastolic Dysfunction. Pt's hydrochlorothiazide was discontinued due to hypokalemia and was started on amlodipine which the patient tolerated well. Pt's sinus tachycardia is likely secondary to anxiety disorder therefore pt is started on metoprolol, and pt's home hydroxyzine is increased to 50mg TID. During the course of hospitalization, imaging is also evident of cholelithiasis, however pt is asymptomatic and will need outpatient follow up with general surgeon. Patient is hemodynamically stable to be discharge home to self care. Discharge Recommendations -Follow up with orthopedic surgeon Dr Sherwood regarding wrist fracture, call his office and schedule appointment. -Your home medications have been changed, you can continue escitalopram, increased hydroxyzine to 50mg three times a day -For your blood pressure you have been started on new medication called amlodipine and your increased HR you have been started on metoprolol -Take tramadol 1 tab as needed every 8 hours for pain. -Follow up with PCP within 2 weeks -Discuss with your primary care regarding repeating CBC Hospitalization Diagnosis #Sinus Tachycardia, 2/2 to anxiety #Intractable vomiting - Resolved #Gastroenteritis, likely viral. #Cholelithiasis. #Cholecystitis ruled out. #Hyperbilirubinemia #Distal radial fracture, left. #Multiple right rib fractures. #Ground-level fall #lactic acidosis, resolved. #Hypokalemia, resolved. #Hypocalcemia. #Microcytic anemia. #Primary Hypertension. #Anxiety. #Panic attacks. Assessment and plan discussed with my attending physician Dr. Marce Reyes (PGY-1)- Internal medicine resident Time Spent with Patient Time attestation: Total time spent providing and/or coordinating discharge services: Time spent: Greater than 30 minutes Exam Vital Signs Temp Pulse Resp BP Pulse Ox O2 Del Method 97.2 F 101 H 17 143/61 H 94 L Room Air 01/08/25 08:00 01/08/25 09:23 01/08/25 08:00 01/08/25 09:23 01/08/25 08:00 01/08/25 08:00 Narrative Exam GENERAL: A&Ox3 . obese, Urdu speaking female, cooperative, does not appear to be in acute distress NEURO: no focal neurological deficits HEENT: Atraumatic, Normocephalic. mucous membranes moist. Eyes open, symmetrical, & clear HEART: Normal Heart Sounds LUNGS: Clear to auscultation with no wheezing or crackles. ABDOMEN: soft, non-distended, non-tender, bowel sounds heard, no guarding or rebound tenderness SKIN: No Rash or ecchymoses EXTREMITIES: left forearm in a splint and tenderness is noted, No edema, able to move all 4 extremities, pedal pulses palpated Discharge Plan Plan Patient Disposition: HOME (Self Care) Patient condition on transfer: Stable Care Plan Goals: -Follow up with orthopedic surgeon Dr Sherwood regarding wrist fracture, call his office and schedule appointment. -Your home medications have been changed, you can continue escitalopram, increased hydroxyzine to 50mg three times a day -For your blood pressure you have been started on new medication called amlodipine and your increased HR you have been started on metoprolol -Take tramadol 1 tab as needed every 8 hours for pain. -Follow up with PCP within 2 weeks -Discuss with your primary care regarding repeating CBC Prescriptions/Referrals Prescriptions/Med Rec: New tramadol 50 mg tablet 50 mg PO Q8H PRN (Reason: pain) Qty: 14 0RF hydroxyzine HCl 50 mg tablet 50 mg PO TID 30 Days Qty: 90 0RF amlodipine 10 mg tablet 10 mg PO QDAY Qty: 30 3RF metoprolol tartrate 25 mg tablet 25 mg PO BID Qty: 30 3RF Continued escitalopram oxalate 10 mg tablet 10 mg PO QDAY Discontinued hydroxyzine HCl 25 mg tablet 25 mg PO BID PRN (Reason: anxiety) hydrochlorothiazide 25 mg tablet 25 mg PO QDAY Referrals: Chidi Lehman PA-C [Primary Care Provider] - Pb Sherwood MD [Physician] - Patient/Caregiver Discharge Instructions Print Language: Urdu Stand Alone Forms: Lian Award Info., Patient Portal Info Letter, Work/Release Restrictions Discharge Order Discharge Orders: Discharge (Routine); Ordered 01/08/25 Ordered By: Suzanna Reyes Quality Discharge Quality Measures VTE prophylaxis
== END 2025-01-08 11:11 | disposition home or self-care (01) | DRG 308 ==
LOC: SERX 06:20 → SERHOLD 01-06 08:10 → S3NX 01-06 08:10
PROVIDERS: Student in an Organized Health Care Education/Training Program; Admitting Provider Internal Medicine; Emergency Provider Emergency Medicine; PCP Physician Assistant; Visit Provider Internal Medicine
DX: R00.0 Tachycardia, unspecified (principal); J18.9 Pneumonia, unspecified organism; S52.502A Unspecified fracture of the lower end of left radius, initial encounter for closed fracture; S22.41XA Multiple fractures of ribs, right side, initial encounter for closed fracture; E87.20 Acidosis, unspecified; C79.51 Secondary malignant neoplasm of bone; R50.81 Fever presenting with conditions classified elsewhere; R29.6 Repeated falls; K80.20 Calculus of gallbladder without cholecystitis without obstruction; K76.0 Fatty (change of) liver, not elsewhere classified; K52.9 Noninfective gastroenteritis and colitis, unspecified; K57.30 Diverticulosis of large intestine without perforation or abscess without bleeding; I10 Essential (primary) hypertension; E87.6 Hypokalemia; E83.51 Hypocalcemia; D50.9 Iron deficiency anemia, unspecified; F41.0 Panic disorder [episodic paroxysmal anxiety]; M85.88 Other specified disorders of bone density and structure, other site; M81.8 Other osteoporosis without current pathological fracture; F41.9 Anxiety disorder, unspecified; R11.10 Vomiting, unspecified; W01.0XXA Fall on same level from slipping, tripping and stumbling without subsequent striking against object, initial encounter; D70.9 Neutropenia, unspecified; K82.8 Other specified diseases of gallbladder; Z79.899 Other long term (current) drug therapy; Y92.238 Other place in hospital as the place of occurrence of the external cause
CPT/HCPCS: 36415; 70450; 71045; 71260; 72125; 73090; 73110; 73130; 74177; 76705; 80053; 80061; 81001; 83605; 83615; 83690; 83735; 83880; 83993; 84100; 84145; 84443; 84484; 85025; 85610; 85730; 87015; 87040; 87045; 87046; 87086; 87205; 87329; 87400; 87449; 87811; 87899; 93005; 93306; 94664; 96361; 96365; 96366; 96367; 96372; 96375; 99285; A4649; G0378; J0696; J1644; J1650; J2060; J2270; J2405; J2470; J3475; J3480; J7030; Q9967; A9270

== ENCOUNTER 2025-01-10 05:35 | Day surgery (SDC) | payer MEDICARE, MEDICAID, SELFPAY ==
[2025-01-09 10:12] VITALS: BMI 35.5
--- NOTE | 2025-01-09 15:17 | SUR.PREOP ---
Pt's son Lyle notified to bring pt at 0545 tomorrow for surgery.
[2025-01-10] VITALS (9 sets, daily range): BP systolic 141–168; BP diastolic 86–96; PULSE 77–93; RESP 12–19; TEMP 36.1–36.6; O2SAT 94–100; BMI 37.5
--- NOTE | 2025-01-10 07:18 | XR_ITS ---
Examination: Left wrist 2 views Fluoroscopy Exam date and time: January 10, 2025 0922 hours INDICATIONS: Operative reduction internal fixation fracture distal radial metaphysis, acute impacted fracture distal radial metaphysis on plain film x-rays January 05, 2025 TECHNIQUE AND FINDINGS: Operative reduction internal fixation fracture distal radius with anatomic alignment Orthopedic hardware satisfactory position Fluoroscopy 16 seconds 2 spot fluoroscopic images of the wrist radiation dose 0.144 milligray IMPRESSION: Operative reduction internal fixation fracture distal radial metaphysis with anatomic alignment
--- NOTE | 2025-01-10 07:27 | SUR.PREOP ---
Patient expressed gratitude for prayer before their procedure.
--- NOTE | 2025-01-10 09:15 | SUR.PHASEI ---
0915: received pt from OR via [place]. received report from Dr. Ngo and Monique RN. pt alert and awake. no s/s of resp. distress or discomfort. c/o pain 2/10, tolerable. dressing to left wrist and hand clean, dry and intact. positive CMS: wiggle left fingers, cap refill less than 2 seconds and positive pulse.
--- NOTE | 2025-01-10 09:18 | PD.SUROPNT ---
Date of Procedure 01/10/25 Pre Op Diagnosis Comminuted angulated impacted displaced fracture of the left distal radius Post Op Diagnosis Same Procedure Open reduction and internal fixation with a 5 hole interlocking distal volar radial plate Findings Refer dictation Procedure Description Patient was given general endotracheal anesthesia. Wrist block was also given. Following that a tourniquet was placed on left upper arm. Part was thoroughly prepped and draped. After using Esmarch the tourniquet pressure was raised to 250 mmHg. Intravenous antibiotics was given at the time of anesthesia I skin incision was made from the wrist crease extending proximally for about 4 to 5 inches. Deeper dissection was carried out. A plane was developed between the flexor carpi radialis muscle and brachioradialis muscle. The median nerve was protected and the flexor carpi radialis and radial nerve and artery was protected in the brachioradialis muscle. The pronator quadratus muscle was encountered. That was reflected from the flexor aspect of the radius. The fracture fragment was exposed. With the help of [place] and curette the soft tissue interposed between the fracture fragment was removed Following that the fracture was manipulated and reduced. Once satisfactory reduction was achieved then a 5 hole volar plate was mounted. Once satisfactory placement was achieved a guide pin was passed to stabilize the plate. Following that 1 drill hole was made on the proximal vertical limb and appropriate size cortical screw was placed. 1 more drill hole was made and another cortical screw was placed proximally. Following that attention was paid towards the distal end. The 2 medial holes were drilled in sequence and appropriate side cortical screw was placed. While tightening the screws the volar tilt was maintained. Following that 3 interlocking screws was placed in sequence Following that the guidepin was removed from the vertical limb and 2 interlocking screw 1 at the most proximal and 1 at the distal end was placed. Position was repeatedly checked under C-arm and found to be a very good Wound was irrigated with antibiotic solution every 4 to 5 minutes Closure was done in layers with the help of 2-0 Vicryl for the soft tissue and the skin was closed with lela Cleaning the wound with hydrogen peroxide solution and sterile dressing was applied and tourniquet pressure was released. Splint was placed as well. Patient tolerated procedure well. Estimated blood loss 5 mL. Prognosis in this case is fair to good. Anesthesia GETA and other Pathology / specimen None Estimated Blood Loss 5 Surgeon Pb Sherwood MD Surgical Staff Operation Date: 01/10/25 07:30 Case Staff Anesthesiologist: Lavelle Ngo RNstrickler attendant: Mark Vanegas
[2025-01-10] MEDS: fentaNYL CIT INJ 50 mCg/ML AMP 2ML IV ×2 (09:23→09:44)
[2025-01-10] MEDS: MORPHINE SULF INJ 10 MG/ML VIAL 2 MG IVP (09:34)
--- NOTE | 2025-01-10 09:51 | XR_ITS ---
Examination: Left wrist 2 views Technique one AP lateral left wrist 2 views Exam date and time: January 10, 2025 1012 hours Comparison January 05, 2025 INDICATIONS: Postop reduction wrist fracture FINDINGS: Postop reduction internal fixation fracture distal radial metaphysis with satisfactory alignment Orthopedic hardware satisfactory position Ulnar styloid tip fracture IMPRESSION: Postop reduction internal fixation fracture distal radial metaphysis with satisfactory alignment
--- NOTE | 2025-01-10 09:59 | SUR.PHASEII ---
0957:patient able to drink water without any issues.
--- NOTE | 2025-01-10 10:03 | ESHP_ITS ---
RE: SENAIT MICHELE : 1955 DATE OF ADMISSION: 01/10/2025 HISTORY OF PRESENT ILLNESS: The patient came to my office on 01/09/2025 for detailed preop history and physical examination. The patient presented to me with history of fall on 01/05/2025. The patient noticed immediate pain and deformity of the left wrist. The patient went to the emergency room and x-ray was obtained. It revealed fracture of the left distal radius. It was impacted, overriding, angulated and displaced fracture. PAST MEDICAL HISTORY: The patient has a history of high blood pressure. No history of diabetes mellitus, asthma, seizure, chest pain, myocardial infarction, or bleeding disorder. PAST SURGICAL HISTORY: Nil. DRUG HISTORY: The patient is on; 1. Amlodipine. 2. Hydroxyzine. 3. Metoprolol. 4. Tramadol. ALLERGIES: NIL KNOWN FAMILY HISTORY AND SOCIAL HISTORY: The patient denies smoking, drinking and is not working. PHYSICAL EXAMINATION: GENERAL: Normal built lady. Pulse is 68 per minute. Blood pressure is 128/76. NECK: Soft, supple. No masses felt. Trachea is centrally placed. CARDIOVASCULAR SYSTEM: First and second heart sounds are normal. No murmur heard. LUNGS: Bilateral vesicular breath sounds. CHEST: Clear. ABDOMEN: Soft. No masses felt. Bowel sounds present. BREASTS: Not indicated in this case. RECTAL: The patient is advised to see family physician for rectal examination. EXTREMITIES: Left wrist examination revealed swelling, ecchymosis, and bruise. There was a deformity as well. The patient had weak fist and surety bond agent. Sensation was a little bit dull in the median nerve distribution in the hand. DIAGNOSTIC DATA: X-ray confirmed impacted angulated displaced fracture of the left distal radius. ASSESSMENT AND PLAN: Diagnosis and prognosis was explained to the patient and the family in detail. Surgical fixation, plate and screw were discussed and advised. Risks of anesthesia was explained and that includes, but not limited to reaction to anesthetic agents, cardiac arrest rarely it might be fatal. Risks with operation includes infection and if that happens, the patient will need further surgical procedure. Other risks include delayed healing, wound dehiscence, etc. No guarantee is given regarding the outcome of the procedure and/or relief of symptoms. Appropriate lab work done. Surgery is booked for 01/10/2025. DT: 09:26:59 TT: 10:02:00 Ref: [id number] - TID: [id number]
--- NOTE | 2025-01-10 10:25 | SUR.PHASEII ---
1025: pt discharge to home via wheelchair. pt alert and oriented to name, place and time. dressing to left wrist and hand clean, dry and intact. positive CMS: wiggle left fingers, cap refill less than 2 seconds and positive pulse. discharge instructions given to [place] and pt. all belongings brought given back to patient.
--- NOTE | 2025-01-15 10:25 | ESPR_ITS ---
Documentation for date of: 01/15/25 POST ANESTHESIA NOTE: Patient had general LMA anesthesia and L supraclavicular nerve block for L rad ius ORIF on 01/10/25. 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 Lavelle Ngo MD Anesthesia Progress Note Progress Note Most recent Vital Signs: Last Vital Signs Temp 97.8 F 01/10/25 09:55 Pulse 90 01/10/25 10:15 Resp 18 01/10/25 10:15 BP 155/88 H 01/10/25 10:15 Pulse Ox 94 L 01/10/25 10:15 O2 Flow Rate 2 01/10/25 09:45
== END 2025-01-10 10:25 | disposition home or self-care (01) ==
PROVIDERS: PCP Family Medicine; Referring Provider Orthopaedic Surgery; Visit Provider Orthopaedic Surgery
PROC: (CPT 25607; principal; 2025-01-10 07:30)
DX: S52.592A Other fractures of lower end of left radius, initial encounter for closed fracture (principal); I10 Essential (primary) hypertension; W19.XXXA Unspecified fall, initial encounter
CPT/HCPCS: 25607; 73100; 76000; 85025; A4217; A4649; C1713; J0690; J1100; J2250; J2270; J2371; J2704; J2765; J2795; J3010; J3490

== ENCOUNTER → 2025-02-17 | Outpatient (CLI) | payer MEDICARE, MEDICAID, SELFPAY ==
--- NOTE | 2025-02-17 10:43 | XR_ITS ---
Examination: Wrist, left 3 views Technique: Wrist AP, oblique, lateral 3 views Date and time of exam: February 17, 2025 1112 hours INDICATIONS: History postop reduction internal fixation fracture distal radial metaphysis FINDINGS: Further healing fracture distal radius compared with January 10, 2025 With be hardware satisfactory position Ulnar styloid tip fracture IMPRESSION: Further significant healing fracture distal radius with stable and satisfactory alignment
== END | disposition home or self-care (01) ==
PROVIDERS: PCP Physician Assistant; Referring Provider Orthopaedic Surgery; Visit Provider Orthopaedic Surgery
DX: S52.502D Unspecified fracture of the lower end of left radius, subsequent encounter for closed fracture with routine healing (principal); X58.XXXD Exposure to other specified factors, subsequent encounter
CPT/HCPCS: 73110

== ENCOUNTER 2025-05-16 20:01 | Observation (INO) | payer MEDICARE, MEDICAID, SELFPAY ==
[2025-05-16 20:05] VITALS: BP 135/70; PULSE 95; RESP 19; TEMP 37.1; O2SAT 96
[2025-05-16 20:21] VITALS: BP 142/62; PULSE 77; RESP 20; TEMP 36.9; O2SAT 99
[2025-05-16 20:22] VITALS: PULSE 110; RESP 20; O2SAT 98; BMI 35.2
--- NOTE | 2025-05-16 20:42 | EDNOTE_ITS ---
ED Weakness RME/HPI General Chief complaint: Weakness Stated complaint: GENERAL WEAKNESS Arrival date/time: 05/16/25 20:01 RME / HPI RME / HPI Narrative: Dr. Morejon?s Main ED Evaluation: 70yo female with a history of HTN BIBA from home presents to the ED for a chief complaint of generalized weakness x 4 days. Patient describes her weakness as my legs give out , reporting she has had a decreased appetite and intermittent diarrhea. She has been falling more frequently, but denies any loss of consciousness. Patient denies any chest pain, abdominal pain, extremity pain, or any other associated symptoms. NKA. Related Data Home Medications ?Medication ?Instructions ?Recorded ?Confirmed escitalopram oxalate 10 mg tablet 10 mg PO QDAY 01/09/25 Previous Rx's ?Medication ?Instructions ?Recorded tramadol 50 mg tablet 50 mg PO Q8H PRN pain #14 ta bs 01/06/25 amlodipine 10 mg tablet 10 mg PO QDAY #30 tabs 01/08 metoprolol tartrate 25 mg tablet 25 mg PO BID #30 tabs 01/08/25 Allergies Allergy/AdvReac Type Severity Reaction Status Date / Time No Known Allergies Allergy Verified 01/10/25 06:36 Review of Systems Review of Systems Systems Reviewed: All systems reviewed, normal except as documented Past Medical History Past Medical History NEUROLOGIC: Negative Neurological Disorders or Seizures CARDIAC: Positive Cardiac Disorders and Hypertension; Negative Congestive Heart Failure RESPIRATORY: Negative Chronic Obstructive Pulmonary Disease (COPD) GASTROINTESTINAL: Negative Gastrointestinal Disorders or Hepatitis GENITOURINARY: Negative Genitourinary Disorders or Renal Disease REPRODUCTIVE: Positive Previous Pregnancies (3) MUSCULOSKELETAL: Positive Musculoskeletal Disorders and Fractures (left arm, has soft cast) ENDOCRINE: Negative Endocrine Disorders, Diabetes Mellitus Type 1 or Diabetes Mellitus Type 2 HEMATOLOGIC: Positive Blood Disorders and Anemia PSYCHO/SOCIAL: Positive Anxiety OTHER HISTORY: Positive Hospitalization (recently fall); Negative Autoimmune Disease, Shingles, Blood Transfusions, Blood Transfusion Reaction, Anesthesia Reactions or Cancer Family History FAMILY HISTORY: Negative Family Psychiatric Problems, Family Respiratory Disorders, Family Cardiac Disorders, Family Gastrointestinal Problems, Family Cancer, Family Surgery or Family Anesthesia Reaction Surgical History SURGICAL: Positive Abdominal Surgery and Bowel Surgery (exploratory) Social History SMOKING STATUS: Never smoker SUBSTANCE USE: does not use ED Exam Narrative Physical exam: Alert oriented weak and frail appearing, heart regular rate and rhythm, lungs clear to auscultation equal bilaterally, abdomen is soft nondistended nontender, neurologic exam symmetrically weak throughout without focal deficits with a Hardik Coma Scale of 15, extremities show contusion to the distal dorsal portion of the left foot and just distal to the left shoulder with full range of motion of the left shoulder. No palpation tenderness to the dorsal portion of the left foot or obvious deformity. Course Quality Measures none Orders Category Date Time Status Patient Condition Routine Admission 05/16/25 22:[address] in Observation Status Routine Admission 05/16/25 22:23 Active Activity as Tolerated Routine Care 05/16/25 22:24 Ordered EKG (ED ONLY) *Do not use* NOW Care 05/16/25 20:49 Completed Notify provider NEEDED Care 05/16/25 22:23 Active Diet Cardiac Diet 05/17/25 Breakfast Active EKG (ED Only) Stat Exams 05/16/25 20:49 Draft Basic Metabolic Panel AM DRAW Lab 05/17/25 05:00 Ordered Basic Metabolic Panel AM DRAW Lab 05/18/25 05:00 Ordered CBC AM DRAW Lab 05/17/25 05:00 Ordered CBC AM DRAW Lab 05/18/25 05:00 Ordered CBC Stat Lab 05/16/25 20:46 Completed CMP [Comprehensive Metabolic Panel] Stat Lab 05/16/25 20:46 Completed Magnesium AM DRAW Lab 05/17/25 05:00 Ordered Magnesium Stat Lab 05/16/25 20:46 Completed TSH [Thyroid Stimulating Hormone] Stat Lab 05/16/25 20:46 Completed Troponin I Stat Lab 05/16/25 20:46 Completed UA [Urinalysis] Stat Lab 05/16/25 20:59 Completed Heparin Inj Med 05/17/25 06:00 Active 5,000 unit SC Q8HR Ondansetron Inj [Zofran Inj] Med 05/16/25 22:23 Active 4 mg IVP Q6H PRN POTASSIUM CHL 10 mEq IVPB [Kcl Ivpb] Med 05/16/25 22:02 Active 10 meq in 100 ml IV Q1H Potassium Chloride [K-Dur] Med 05/16/25 22:01 Discontinued 60 meq PO X1 ONE Sodium Chloride 0.9% 1000 ml [Ns] 1,000 ml Med 05/16/25 20:49 Discontinued IV 999 mls/hr Code Status Routine Oth 05/16/25 22:23 Ordered Oxygen Delivery PRN RT 05/16/25 22:25 Active Vital Signs Vital signs: Vital Signs Temperature 98.7 F 05/16/25 20:05 Pulse Rate 95 05/16/25 20:05 Respiratory Rate 19 05/16/25 20:05 Blood Pressure 135/70 H 05/16/25 20:05 Pulse Oximetry (%) 96 05/16/25 20:05 Oxygen Delivery Method Room Air 05/16/25 20:05 Weakness [facility] Narrative [facility] Narrative:: Scribe Attestation: 05/16/25 - Shannan Chavira am scribing for and in the presence of Dr. Morejon. Differential diagnosis: Electrolyte abnormality, infection I interpreted all labs. Potassium came back at 2.5. Patient is symmetrically weak and unable to walk. Magnesium was normal at 2.1. Patient received 60 mill equivalents of potassium chloride p.o. and will receive 10 mEq potassium chloride IV every hour x 4. I discussed this case with the hospitalist who will admit the patient to hospital for further treatment and evaluation for the patient's symptomatic severe hypokalemia. Patient data External records reviewed:: [facility] previous records (Per chart review, patient was admitted here on 01/05/25 for abdominal pain.) Clinical information provided by:: patient Social determinants that could affect healthcare access:: none Patient has the following chronic illnesses:: HTN, anemia How is presenting disease/condition affected by chronic disease/condition?: uneffected by Evaluation data The following diagnostics were reviewed and interpreted by me:: lab results and EKG tracing(s) Lab and/or radiology exams considered but not ordered:: none Interpretation Summary: See [facility] Medications / Prescriptions Medications or Prescriptions considered but not ordered:: none Medication administrations:: Medication Administration History Heparin Sodium (Porcine) (Heparin Sod Inj 5000 Unit/Ml Vial) 5,000 unit SC Q8HR LYNDA Stop: 05/31/25 05:59 Potassium Chloride (Kcl Ivpb) 10 meq in 100 mls @ 100 mls/hr IV Q1H LYNDA Stop: 05/17/25 02:01 Ondansetron HCl (Ondansetron Inj 2 Mg/Ml Inj 2 Ml) 4 mg IVP Q6H PRN; Protocol PRN Reason: NAUSEA OR VOMITING Stop: 06/15/25 22:22 Discontinued Medications Sodium Chloride (Ns) 1,000 mls @ 999 mls/hr IV .Q1H1M ONE Stop: 05/16/25 21:49 Last Admin: 05/16/25 20:56 Dose: 999 mls/hr Documented By: TRACY Potassium Chloride (Potassium Chloride 20 Meq Tabcr) 60 meq PO X1 ONE Stop: 05/16/25 22:02 see above Consultations Consultation(s) initiated? (list below): Yes Consultation #1 (Physician, Specialty, Details): Discussed case with Dr. Estrella from Hospitalist service regarding admission. Discussed patients ED course, exam findings, labs, and radiology results. The Hospitalist agrees to accept the patient for admission. Time: 22:07 Diagnosis Weakness Differential Diagnosis: other (See MDM.) Most likely diagnosis given after review of the tests above:: see clinical impression below Admission Indicated Admission indicated?: indicated Admission Request Was there a request for admission?: Yes Admission Attestation Admission request attestation: Discussed case with [] from Hospitalist service regarding admission. Discussed patients ED course, exam findings, labs, and radiology results. The Hospitalist [agrees,declines] to accept the patient for admission. Disposition Plan Disposition Plan: Admit Critical Care Time Critical Care Time Critical Care Time: Yes Total Critical Care Time (min.): 35 Attestation: Excluding other billable procedures Discharge Plan Plan Patient Disposition: Admit Acute Care w/in Hospital Prescriptions/Referrals Prescriptions/Med Rec: No Action escitalopram oxalate 10 mg tablet 10 mg PO QDAY tramadol 50 mg tablet 50 mg PO Q8H PRN (Reason: pain) Qty: 14 0RF amlodipine 10 mg tablet 10 mg PO QDAY Qty: 30 3RF metoprolol tartrate 25 mg tablet 25 mg PO BID Qty: 30 3RF Problem List Clinical Impression: Acute hypokalemia, Weakness Patient/Caregiver Discharge Instructions Print Language: Samoan Stand Alone Forms: Lian Award Info., Patient Portal Info Letter
--- NOTE | 2025-05-16 20:44 | PC.NURSE ---
chet care provided for pt. personal belongings put in belongings bag.
--- NOTE | 2025-05-16 20:49 | EKG_ITS ---
[facility] Test Date: 2025-05-16 Pat Name: SENAIT MICHELE Department: Room: - Gender: Female Insert Cutter: : 1955 Requested By: Karthikeyan Sin Order Number: [id number] Reading MD: Karthikeyan Sin Measurements Intervals [place] Rate: 84 P: 64 UT: 152 QRS: 95 QRSD: 113 T: 60 QT: 310 QTc: 367 Interpretive Statements SINUS RHYTHM BORDERLINE RIGHT AXIS DEVIATION [QRS AXIS > 90] MODERATE INTRAVENTRICULAR CONDUCTION DELAY [110+ ms QRS DURATION] Compared to ECG 01/07/2025 18:00:27 Intraventricular conduction delay now present Sinus tachycardia no longer present /store/S0/[id number]/ecg/[id number].pdf
[2025-05-16] MEDS: SODIUM CHLORIDE 0.9% 1000 ML 1,000 ML 999 ML IV (20:56)
[2025-05-16 21:08] LABS: Collection Type, Urine Voided
[2025-05-16 21:32] LABS: Basophils # (Auto) 0.0 Thou/mm3 (0.0-0.2); Basophils % (Auto) 1 % (0-2.5); Eosinophils # (Auto) 0.0 Thou/mm3 (0.0-0.5); Eosinophils % (Auto) 0 % (0-10); Hematocrit 32.3 % (36.0-46.0); Hemoglobin 10.6 g/dL (12.0-16.0); Immature Granulocytes Auto 0.01 Thou/mm3 (0.00-0.00); Lymphocytes # (Auto) 0.8 Thou/mm3 (1.0-4.8); Lymphocytes % (Auto) 12 % (10-50); Mean Corpuscular HGB Conc 32.8 g/dl (31.0-37.0); Mean Corpuscular Hemoglobin 26.1 pg (25.0-35.0); Mean Corpuscular Volume 80 fL (80-100); Monocytes # (Auto) 0.6 Thou/mm3 (0.0-0.8); Monocytes % (Auto) 9 % (0-12); Neutrophils # (Auto) 4.9 Thou/mm3 (1.8-7.7); Neutrophils % (Auto) 78 % (37-80); Nucleated Red Blood Cell # 0.00 Thou/mm3 (0.00-0.00); Nucleated Red Blood Cell % 0 /100 WBC (0); Platelet Count 229 Thou/mm3 (140-440); RDW Standard Deviation 49.5 fL (36.4-46.3); Red Blood Count 4.06 Miln/mm3 (4.00-5.20); White Blood Count 6.3 Thou/mm3 (3.6-11.0)
[2025-05-16 21:46] LABS: Alanine Aminotransferase 17 U/L (10-49); Albumin, Serum 4.5 gm/dL (3.4-4.8); Albumin/Globulin Ratio 1.7 (1.2-2.2); Alkaline Phosphatase 62 U/L (46-116); Anion Gap 15 (7-16); Aspartate Amino Transferase 33 U/L (0-34); BUN/Creatinine Ratio 7 Ratio (12-20); Bilirubin,Total 0.5 mg/dL (0.3-1.2); Blood Urea Nitrogen 9 mg/dL (9-23); Calcium 9.4 mg/dL (8.3-10.6); Calcium (Corrected) 9.4 mg/dL (8.5-10.1); Carbon Dioxide 29.4 mMol/L (20.0-31.0); Chloride 96 mMol/L (98-107); Creatinine (Component) 1.3 mg/dL (0.6-1.3); Estimated Creatinine Clearance 38.7 mL/min (>60); Globulin 2.7 gm/dL (2.3-3.5); Glucose 132 mg/dL (74-106); Magnesium 2.1 mg/dL (1.6-2.6); Osmolality,Calculated 280 (275-295); Sodium 140 mMol/L (136-145); Thyroid Stimulating Hormone 1.49 uIU/mL (0.55-4.78); Total Protein 7.2 gm/dL (5.7-8.2); Troponin I < 0.020 ng/mL (0.0-0.045); eGFR 45 See Note
[2025-05-16 21:47] LABS: Potassium 2.5 mMol/L (3.4-5.1)
[2025-05-16 22:26] LABS: Bilirubin,Urine Negative (Negative); Blood,Urine Negative (Negative); Clarity,Urine Clear (Clear/Hazy); Color,Urine Yellow (Lt Yel-Yel); Glucose, Urine Negative (Negative); Hyaline Casts,Urine 1 /hpf (0-1); Ketones,Urine 1+ (Negative); Leukocyte Esterase,Urine Negative (Negative); Nitrite,Urine Negative (Negative); PH,Urine 5.5 (5.0-7.0); Protein,Urine Trace (Neg - Trace); RBC,Urine 2 /hpf (0-3); Specific Gravity,Urine 1.027 (1.001-1.035); Squamous Epithelial Cell,Urine 5 /hpf (0-5); Urobilinogen,Urine 2.0 mg/dL (0.0-1.0); WBC,Urine 5 /hpf (0-5)
--- NOTE | 2025-05-16 22:30 | PD.HHHP ---
Documentation for date of: 05/16/25 HPI - Hospitalist History of Present Illness History of Present Illness: Generalized weakness, severe hypokalemia History of present illness: 70-year-old female patient with past medical history significant for hypertension, anxiety, and hyperlipidemia brought in by ambulance from home for complaint of generalized weakness for past few days, patient also reports 2 falls in the past 10 days due to her lower extremity weakness, patient denies any head trauma, loss of consciousness, chest pain, palpitations, shortness of breath, N/V, abdominal pain, or urinary symptoms, but does report left shoulder pain. At ED patient's labs were noted for Hgb 10.6 along with potassium of 3.1, creatinine 1.3 and eGFR 45. On review of patient's chart patient was previously on hydrochlorothiazide but was stopped but continues to to take HCTZ. Patient also reports a few episodes of diarrhea around 3 times daily for the past 5 days last episode was on afternoon of admission. Patient is a poor historian despite being alert and oriented to name, place, and date of , [id number] by bedside reporting possible dementia as patient is extremely forgetful for the past few months. At ED patient was given 1L of NS bolus along with 100 mL equivalent of potassium chloride. Patient was admitted for generalized weakness, hypokalemia. Review of Systems Review of Systems Systems Reviewed: All systems reviewed, normal except as documented Past Medical History Past Medical History NEUROLOGIC: Negative Neurological Disorders or Seizures CARDIAC: Positive Cardiac Disorders and Hypertension; Negative Congestive Heart Failure RESPIRATORY: Negative Chronic Obstructive Pulmonary Disease (COPD) GASTROINTESTINAL: Negative Gastrointestinal Disorders or Hepatitis GENITOURINARY: Negative Genitourinary Disorders or Renal Disease REPRODUCTIVE: Positive Previous Pregnancies (3) MUSCULOSKELETAL: Positive Musculoskeletal Disorders and Fractures (left arm, has soft cast) ENDOCRINE: Negative Endocrine Disorders, Diabetes Mellitus Type 1 or Diabetes Mellitus Type 2 HEMATOLOGIC: Positive Blood Disorders and Anemia PSYCHO/SOCIAL: Positive Anxiety OTHER HISTORY: Positive Hospitalization (recently fall); Negative Autoimmune Disease, Shingles, Blood Transfusions, Blood Transfusion Reaction, Anesthesia Reactions or Cancer Family History FAMILY HISTORY: Negative Family Psychiatric Problems, Family Respiratory Disorders, Family Cardiac Disorders, Family Gastrointestinal Problems, Family Cancer, Family Surgery or Family Anesthesia Reaction Surgical History SURGICAL: Positive Abdominal Surgery and Bowel Surgery (exploratory) Social History SMOKING STATUS: Never smoker SUBSTANCE USE: does not use Meds Home Medications and Allergies Home Medications ?Medication ?Instructions ?Recorded ?Confirmed ?Type escitalopram oxalate 10 mg tablet 10 mg PO QDAY 01/05/25 05/17/25 History hydroxyzine HCl 50 mg tablet 50 mg PO TID 05/17/25 05/17/25 History lisinopril 20 mg tablet 20 mg PO DAILY 05/17/25 05/17/25 History Allergies Allergy/AdvReac Type Severity Reaction Status Date / Time No Known Allergies Allergy Verified 01/10/25 06:36 Exam Vital Signs Temp Pulse Resp BP Pulse Ox O2 Del Method 98.4 F 77 20 142/62 H 99 Room Air 05/16/25 20:21 05/16/25 20:21 05/16/25 20:21 05/16/25 20:21 05/16/25 20:21 05/16/25 20:21 Narrative General: Obese but well appearing, in no distress, normal mood and affect. HEENT: Normocephalic, atraumatic, anicteric, EOM intact, PERRLA Heart: RRR, no murmur or gallop. Lungs: Clear to auscultation with equal breath sounds bilaterally. Abdomen: Bowel sounds normal, no tenderness or guarding, no CVA tenderness Extremities: Sensation, circulation, motor function intact and equal in all extremities, left shoulder tenderness on palpation along with hematoma on lateral aspect of the shoulder, range of motion/strength intact. Neurologic: Alert and oriented to name, place and date of , CN II-XII intact, DTRs normal Results - Hospitalist Labs Diagrams: 05/16/25 20:46 05/16/25 20:46 Labs: Short CBC 05/16/25 Range/Units 20:46 WBC 6.3 (3.6-11.0) Thou/mm3 Hgb 10.6 L (12.0-16.0) g/dL Hct 32.3 L (36.0-46.0) % Plt Count 229 (140-440) Thou/mm3 BMP 05/16/25 20:46 Sodium 140 Potassium 2.5 L* Chloride 96 L Carbon Dioxide 29.4 BUN 9 Creatinine 1.3 Glucose 132 H Calcium 9.4 Cardiac Enzymes 05/16/25 Range/Units 20:46 Troponin I < 0.020 (0.0-0.045) ng/mL Liver Function 05/16/25 Range/Units 20:46 Total Bilirubin 0.5 (0.3-1.2) mg/dL AST 33 (0-34) U/L ALT 17 (10-49) U/L Alkaline Phosphatase 62 (46-116) U/L Albumin 4.5 (3.4-4.8) gm/dL Urine 05/16/25 Range/Units 20:59 Urine Color Yellow (Lt Yel-Yel) Urine Clarity Clear (Clear/Hazy) Urine pH 5.5 (5.0-7.0) Ur Specific [place] 1.027 (1.001-1.035) Urine Protein Trace (Neg - Trace) Urine Glucose (UA) Negative (Negative) Assessment & Plan -Hospitalist Additional Assessment 70-year-old female with past medical history significant for hypertension, anxiety disorder with recurrent panic attacks, and hyperlipidemia BIBA from home for generalized weakness and significantly decreased p.o. intake for past few days, patient alert and oriented to name place and date despite being poor historian. Patient reports having multiple episodes of diarrhea for past week, described as small in volume watery and happens around 3 times a day, but has not had any BM since afternoon. Patient also reports having 3 ground-level falls around 10 days ago that were nonsignificant but notes left shoulder pain and discoloration. Patient denies any other symptoms of fever chills, chest pain, shortness of breath, abdominal pain or pain on urination. Patient previously prescribed hydrochlorothiazide but appears to have been discontinued yet medication brought in by patient noted for presence of hydrochlorothiazide. Patient is noted to be poor historian with difficulty comprehending instructions about medications, she lives with her who has dementia and requires constant care. Patient admitted for severe hypokalemia, generalized weakness, dehydration along with diarrhea. At ED patient was mildly hypertensive with BP 160/80, labs were noted for hemoglobin 10.6 along with potassium of 2.5, rest of labs within normal, patient was given 1L of NS bolus along with 60 mill equivalents of po KCl and 40 mill equivalents of IV KCl. #Hypokalemia Admission labs noted for K 2.5, Likely 2/2 HCTZ use despite discontinuation. Patient given 60 mEq of p.o. potassium and started on 40 mill equivalents of IV potassium. Follow-up a.m. renal panel. Patient informed to stop HCTZ per her PCP recommendations. #Diarrhea #Gastroenteritis, likely viral. #Decreased p.o. intake #Generalized weakness - Continue oral hydration encourage fluid intake if tolerating. - Patient started on NS 100 mL/HR x 1L - Further diagnostic workup as warranted if diarrhea continues - Dietary consult if patient continues to have decreased p.o. intake #Recurrent Falls #L/Shoulder pain #L/Shoulder hematoma Low suspicion of stroke as patient has no focal neurodeficit. XR of left shoulder negative for dislocation/fracture. Head CT negative for intracranial mass/bleed/infarct #Chronic normocytic anemia. - Hemoglobin 10.6. Patient's hemoglobin around her baseline No signs of acute bleeding patient denies hematemesis, melena or hematochezia. Follow-up daily CBC Follow-up with PCP for further workup as warranted #Primary Hypertension. -Hydralazine 10 mg Q6 for SBP> 180 -Resume home meds once reconciled #Anxiety. #Panic attacks. - Patient's home medications include hydroxyzine and escitalopram however patient states hydroxyzine does not really help. Plan: - Escitalopram 10 mg daily and will continue to monitor. - lorazepam as needed. Health maintenance: DVT prophylaxis: Heparin 5000 SC TID daily Diet: Cardiac IV access: PIV CODE STATUS: DNR Plan of care discussed with patient and is in agreement. Quality Measures Quality Measures VTE prophylaxis Advance care planning discussed with:: patient
--- NOTE | 2025-05-16 22:50 | XR_ITS ---
Examination: Shoulder,left, 3 views Technique: Shoulder AP internal rotation, AP external rotation, Y view shoulder, 3 views Exam date and time :May 16, 20122024 11:04 AM Indications: Patient fell today with into the shoulder, shoulder pain. Findings: No shoulder fracture or dislocation No foreign body Impression: No shoulder fracture or dislocation
[2025-05-16] MEDS: POTASSIUM CHL 10 mEq IVPB 10 MEQ/100 ML BAG 100 MEQ IV (22:59)
[2025-05-16] MEDS: SODIUM CHLORIDE 0.9% 500 ML 500 ML 80 ML IV (23:08)
[2025-05-16 23:45] VITALS: BP 160/82; PULSE 80; RESP 21; TEMP 36.8; O2SAT 98
[2025-05-17] VITALS (7 sets, daily range): BP systolic 107–154; BP diastolic 62–80; PULSE 75–101; RESP 16–22; TEMP 30.7–36.7; O2SAT 93–99; BMI 35.3
--- NOTE | 2025-05-17 00:10 | XR_ITS ---
Examination: CT brain head without contrast. 2-D sagittal coronal reconstructions Date and time of exam:May 17, 2025, 0105 hrs. Clinical data falls this week, 2 falls today with injury to head, head pain CTDI: vol (mGy):47.8 DLP: (mGycm):948 Technique: Multiple CT axial sections of the brain have been obtained, 5 mm slice thickness. Contrast has not been administered. 2-D sagittal, coronal reconstructions have been obtained Low dose protocols were performed. One or more of the following dose reduction techniques were used; automated exposure control, adjustment of the mA and/or KV according to patient size, use of iterative reconstruction technique. Findings: No significant ventricular enlargement. Intra-axial or extra-axial hemorrhage density is not seen. No mass effect or midline shift Basal cisterns are not remarkable. Fourth ventricle is midline. Cranial vault intact. Impression: Negative for acute hemorrhage, mass effect or midline shift
[2025-05-17] MEDS: POTASSIUM CHL 10 mEq IVPB 10 MEQ/100 ML BAG 100 MEQ IV (00:15)
[2025-05-17] MEDS: POTASSIUM CHL 10 mEq IVPB 10 MEQ/100 ML BAG 70 MEQ IV ×2 (01:19→03:16)
[2025-05-17 01:44] LABS: Potassium 3.1 mMol/L (3.4-5.1)
--- NOTE | 2025-05-17 01:44 | PRELIM_ITS ---
CT scan of the head without intravenous contrast (axial sections with sagittal and coronal reformats) May 17, 2025 0109 hours Clinical History: Recurrent falls. Reference is made to the prior report dated January 05, 2025. Findings: The evaluation of the posterior fossa is slightly limited by streak artifacts. There is no evidence of intracranial hemorrhage, mass effect or midline shift. There is mild volume loss. The calvarium is intact. There is mild mucosal thickening in bilateral ethmoid sinuses. The mastoid air cells and other visualized paranasal sinuses are clear. Impression: No evidence of intracranial hemorrhage, midline shift or calvarial fracture. Other findings as described above. Suggest clinical correlation and follow up accordingly. Report Electronically Signed By: Gaurav Cole 05/17/2025 1:43:57 AM [EST]
[2025-05-17] MEDS: MELATONIN 3 MG TABLET 6 MG PO (04:09)
[2025-05-17] MEDS: ACETAMINOPHEN 325 MG TABLET 650 MG PO ×2 (05:07→20:10)
[2025-05-17] MEDS: HEPARIN SOD INJ 5000 UNIT/ML VIAL SC ×3 (05:08→23:21)
[2025-05-17 05:44] LABS: Basophils # (Auto) 0.0 Thou/mm3 (0.0-0.2); Basophils % (Auto) 1 % (0-2.5); Eosinophils # (Auto) 0.0 Thou/mm3 (0.0-0.5); Eosinophils % (Auto) 1 % (0-10); Hematocrit 32.2 % (36.0-46.0); Hemoglobin 10.2 g/dL (12.0-16.0); Immature Granulocytes Auto 0.01 Thou/mm3 (0.00-0.00); Lymphocytes # (Auto) 0.9 Thou/mm3 (1.0-4.8); Lymphocytes % (Auto) 20 % (10-50); Mean Corpuscular HGB Conc 31.7 g/dl (31.0-37.0); Mean Corpuscular Hemoglobin 25.7 pg (25.0-35.0); Mean Corpuscular Volume 81 fL (80-100); Monocytes # (Auto) 0.6 Thou/mm3 (0.0-0.8); Monocytes % (Auto) 13 % (0-12); Neutrophils # (Auto) 2.9 Thou/mm3 (1.8-7.7); Neutrophils % (Auto) 66 % (37-80); Nucleated Red Blood Cell # 0.00 Thou/mm3 (0.00-0.00); Nucleated Red Blood Cell % 0 /100 WBC (0); Platelet Count 178 Thou/mm3 (140-440); RDW Standard Deviation 50.2 fL (36.4-46.3); Red Blood Count 3.97 Miln/mm3 (4.00-5.20); White Blood Count 4.4 Thou/mm3 (3.6-11.0)
[2025-05-17 06:07] LABS: Anion Gap 9 (7-16); BUN/Creatinine Ratio 5 Ratio (12-20); Blood Urea Nitrogen < 5 mg/dL (9-23); Calcium 9.1 mg/dL (8.3-10.6); Carbon Dioxide 26.9 mMol/L (20.0-31.0); Chloride 104 mMol/L (98-107); Creatinine (Component) 1.0 mg/dL (0.6-1.3); Estimated Creatinine Clearance 50.3 mL/min (>60); Glucose 112 mg/dL (74-106); Magnesium 2.0 mg/dL (1.6-2.6); Osmolality,Calculated 277 (275-295); Potassium 3.3 mMol/L (3.4-5.1); Sodium 140 mMol/L (136-145); eGFR > 60 See Note
--- NOTE | 2025-05-17 09:58 | ESPR_ITS ---
Documentation for date of: 05/17/25 Subjective Subjective Interval history: Overnight events: No acute events overnight. Patient admitted overnight. Patient was seen and examined at bedside. AM vitals and labs reviewed. Patient does not appear in any acute distress at this time. Patient states that she feels much better compared to yesterday. Patient is able to sit up on the bed on her own. The patient is noted to be a poor historian. Additional history was taken from family member at bedside. Patient has been feeling weak for about 10 days with 5 days of diarrhea, about 3 episodes of diarrhea a day, and had about 3 falls. The patient only remembers falling once though. The patient is unable to remember if she lost consciousness at all. Family member at bedside does not believe that the patient lost consciousness. In addition to this, patient had been taking hydrochlorothiazide even though that had been stopped previously. It is unclear how the patient is obtaining the hydrochlorothiazide. Patient did receive about 100 mL equivalents of potassium overnight, and potassium went from 2.5-3.3. Additional dose of potassium chloride at 0900. CT head and left shoulder x-ray were performed given the patient's fall on her left shoulder. Imaging was negative for acute findings. Circular bruise with sharp borders noted on left arm. Creatinine 1.0, elevated from baseline of 0.6, is decreased from 1.3 in ED. Repeat renal panel ordered for 1200. 1 L LR ordered. Pending PT evaluation. Review of systems otherwise negative except for what is mentioned above. Exam Vital Signs Temp Pulse Resp BP Pulse Ox O2 Del Method 97.8 F 80 16 132/62 H 95 Room Air 05/17/25 08:00 05/17/25 08:00 05/17/25 08:00 05/17/25 08:00 05/17/25 08:00 05/17/25 08:00 Narrative Exam Physical Exam: General: Alert, no acute distress. Disheveled. Skin: Warm, dry, intact. Circular bruise with sharp border on upper left arm. Head: Normocephalic, atraumatic. Eye: Normal conjunctiva, PERRL. Cardiovascular: Regular rate and rhythm, no murmur, +S1/S2. Respiratory: Lungs are clear to auscultation, respirations unlabored, no crackles, no wheezing. Gastrointestinal: Soft, nontender, non-distended. No guarding or rebound tenderness. Extremities: No edema, no cyanosis, no clubbing. 2+ radial pulse bilaterally, 2+ pedal pulse bilaterally. Neuro: No focal deficits observed. Conversant, moving all extremities. No overt cerebellar signs/incoordination. Psychiatric: Cooperative, appropriate affect. Objective Labs 05/18/25 05:07 05/18/25 05:07 Labs: Laboratory Results - last 24 hr 05/16/25 05/16/25 05/17/25 20:46 20:59 01:26 WBC 6.3 RBC 4.06 Hgb 10.6 L Hct 32.3 L MCV 80 MCH 26.1 MCHC 32.8 RDW Std Deviation 49.5 H Plt Count 229 Neut % (Auto) 78 Lymph % (Auto) 12 [place] % (Auto) 9 Eos % (Auto) 0 Baso % (Auto) 1 Neut # (Auto) 4.9 Lymph # (Auto) 0.8 L [place] # (Auto) 0.6 Eos # (Auto) 0.0 Baso # (Auto) 0.0 Immature Gran # (Auto) 0.01 H Absolute Nucleated RBC 0.00 Immature Gran % 0 Nucleated RBC % 0 Sodium 140 Potassium 2.5 L* 3.1 L D Chloride 96 L Carbon Dioxide 29.4 Anion Gap 15 BUN 9 Creatinine 1.3 Estim Creat Clear Calc 38.7 L eGFR 45 L BUN/Creatinine Ratio 7 L Glucose 132 H Calculated Osmolality 280 Calcium 9.4 Corrected Calcium 9.4 Magnesium 2.1 Total Bilirubin 0.5 AST 33 ALT 17 Alkaline Phosphatase 62 Troponin I < 0.020 Total Protein 7.2 Albumin 4.5 Globulin 2.7 Albumin/Globulin Ratio 1.7 TSH 1.49 Ur Collection Type Voided Urine Color Yellow Urine Clarity Clear Urine pH 5.5 Ur Specific [place] 1.027 Urine Protein Trace Urine Glucose (UA) Negative Urine Ketones 1+ A Urine Blood Negative Urine Nitrite Negative Urine Bilirubin Negative Urine Urobilinogen (Auto) 2.0 Ur Leukocyte Esterase Negative Urine RBC 2 Urine WBC 5 Ur Squamous Epith Cells 5 Urine Bacteria None Hyaline Casts 1 05/17/25 05:08 WBC 4.4 RBC 3.97 L Hgb 10.2 L Hct 32.2 L MCV 81 MCH 25.7 MCHC 31.7 RDW Std Deviation 50.2 H Plt Count 178 D Neut % (Auto) 66 Lymph % (Auto) 20 [place] % (Auto) 13 H Eos % (Auto) 1 Baso % (Auto) 1 Neut # (Auto) 2.9 Lymph # (Auto) 0.9 L [place] # (Auto) 0.6 Eos # (Auto) 0.0 Baso # (Auto) 0.0 Immature Gran # (Auto) 0.01 H Absolute Nucleated RBC 0.00 Immature Gran % 0 Nucleated RBC % 0 Sodium 140 Potassium 3.3 L Chloride 104 Carbon Dioxide 26.9 Anion Gap 9 BUN < 5 L Creatinine 1.0 Estim Creat Clear Calc 50.3 L eGFR > 60 BUN/Creatinine Ratio 5 L Glucose 112 H Calculated Osmolality 277 Calcium 9.1 Corrected Calcium Magnesium 2.0 Total Bilirubin AST ALT Alkaline Phosphatase Troponin I Total Protein Albumin Globulin Albumin/Globulin Ratio TSH Ur Collection Type Urine Color Urine Clarity Urine pH Ur Specific [place] Urine Protein Urine Glucose (UA) Urine Ketones Urine Blood Urine Nitrite Urine Bilirubin Urine Urobilinogen (Auto) Ur Leukocyte Esterase Urine RBC Urine WBC Ur Squamous Epith Cells Urine Bacteria Hyaline Casts Quality Measures Quality Measures none Advance care planning discussed with:: patient and legal surragate Assessment & Plan Assessment Current Active Medications: Generic Name Dose Route Start Last Admin Trade Name Freq PRN Reason Stop Dose Admin Heparin Sodium (Porcine) 5,000 unit 05/17/25 06:00 05/17/25 05:08 Heparin Sod Inj 5000 Unit/Ml Vial SC 05/31/25 05:59 5,000 unit Q8HR LYNDA Administration Hydralazine HCl 10 mg 05/17/25 00:23 Hydralazine Inj 20 Mg/Ml Vial IVP 06/16/25 00:22 Q6HR PRN SBP>180 Ondansetron HCl 4 mg 05/16/25 22:23 Ondansetron Inj 2 Mg/Ml Inj 2 Ml IVP 06/15/25 22:22 Q6H PRN NAUSEA OR VOMITING Protocol Plan Mrs. Hurtado is a 70-year-old female with a past medical history of hypertension, anxiety disorder with recurrent panic attacks, dementia, and hyperlipidemia who was brought by ambulance from home for generalized weakness and falls. Patient was admitted for symptomatic hypokalemia. #Symptomatic hypokalemia 2/2 #Diarrhea, gastroenteritis likely viral and #Poor oral intake #Recurrent falls Patient noted several days of weakness and falls. Patient does not endorse loss of consciousness with these falls, nor does member at bedside. Patient was noted to have potassium of 2.5 in ED, likely secondary to several days of multiple diarrhea episodes and poor oral intake. In addition, patient was noted to continue to use hydrochlorothiazide despite discontinuation by PCP, which is likely contributing to the symptomatic hypokalemia. CT head negative for acute findings in ED. Plan: Continue to monitor and replete as necessary Informed patient to stop hydrochlorothiazide per PCP recommendations 1 L LR bolus 05/17 Will continue monitor bowel movements, will do further investigation if symptoms worsen PT evaluation ordered, pending #Left arm hematoma #Left shoulder pain Patient is noted to have a bruise on the left arm that is red and has sharp demarcations. Patient stated that she fell on her left side and has left shoulder pain. X-ray of left shoulder negative for dislocation or fractures. Plan: Continue to monitor progress of hematoma #Chronic normocytic anemia Patient noted to have a hemoglobin of 10.6 on admission. This appears to be around her baseline and patient does not have any signs of bleeding at this time. Plan: Continue to monitor with daily CBC, will transfuse if hemoglobin is less than 7 per protocol Follow-up with PCP outpatient #Primary hypertension Patient has a history of hypertension. Patient noted to have a blood pressure of 135/70 on initial evaluation in ED patient was prescribed amlodipine, lisinopril, and metoprolol, however she only takes lisinopril at home. Plan: Hydralazine 10 mg every 6 hours as needed if SBP over 180 Will consider resuming home lisinopril 20 mg daily if creatinine continues to downtrend #Anxiety disorder, with panic attacks Patient has a history of anxiety disorder with panic attacks. While patient is prescribed escitalopram, it is noted that she is not taking this medication at home. Patient was also prescribed hydroxyzine, however patient stated that hydroxyzine does not improve her symptoms much. Plan: Patient to follow up outpatient Will consider diazepam as needed if patient has panic attack during hospitalization DVT Prophylaxis: Heparin GI Prophylaxis: N/A Bowel: N/A Diet: Cardiac Montoya: N/A Lines: Peripheral IV Antibiotics: N/A Code Status: FULL Reason for Hospitalization: Symptomatic hyperkalemia Other Barriers to Discharge: PT eval Patient plan of care was discussed with attending physician Dr. Priyank Sanchez, PGY1 Attending Provider Attestation/Addendum Face to face evaluation was performed by me. I have personally seen and examined the patient. I discussed the assessment and plan with the entire medicine team. I reviewed available medical records, imaging studies, laboratory results. I agree with the above subjective data, objective findings, assessment and plan except as corrected by me or noted below #Symptomatic hypokalemia 2/2 #Diarrhea, gastroenteritis likely viral and More than > 30 minutes spent on the encounter
--- NOTE | 2025-05-17 11:03 | PC.SS ---
Yoana Garcia is a 70-year-old female admitted to Med Surg for Sever Hypokalemia. SS conducted bedside contact with the patient to complete initial assessment and to discuss discharge planning. Role and reason explained. Patient confirmed demographic information. Patient identifies el Damian [phone] as her surrogate decision maker. Pt states she is able to complete all ADL?s independently. No need for any source of DME. Pts PCP is Dr. Chidi Lehman (last visit was about 4 months ago). Pharmacy of choice is [facility]. Discharge options discussed and the pt wishes to return home.? Family will provide transportation upon DC. No further intervention required at this time, adoption social worker would be available to address any further concerns. DC Plan: Home Contact: Lyle Lantigua Address: Confirmed on face sheet PCP: Larry
[2025-05-17] MEDS: RINGERS LACTATED 1000 ML 1,000 ML 500 ML IV (11:59)
[2025-05-17 13:09] LABS: Anion Gap 11 (7-16); Calcium 9.4 mg/dL (8.3-10.6); Carbon Dioxide 24.9 mMol/L (20.0-31.0); Chloride 105 mMol/L (98-107); Potassium 3.9 mMol/L (3.4-5.1); Sodium 141 mMol/L (136-145)
[2025-05-17 13:12] LABS: BUN/Creatinine Ratio 5 Ratio (12-20); Blood Urea Nitrogen < 5 mg/dL (9-23); Creatinine (Component) 1.0 mg/dL (0.6-1.3); Estimated Creatinine Clearance 49.1 mL/min (>60); Glucose 133 mg/dL (74-106); Osmolality,Calculated 280 (275-295); eGFR > 60 See Note
--- NOTE | 2025-05-17 14:36 | PC.SS ---
Rounding: Pending PT angelina phillips DC tomorrow home
[2025-05-18] VITALS: BP 131/61; PULSE 72; PULSE 84; RESP 19; TEMP 36.2; O2SAT 97
[2025-05-18] MEDS: MELATONIN 3 MG TABLET 6 MG PO (02:13)
[2025-05-18 04:00] VITALS: BP 125/62; PULSE 71; PULSE 74; RESP 16; TEMP 36.7; O2SAT 96
[2025-05-18] MEDS: HEPARIN SOD INJ 5000 UNIT/ML VIAL SC (05:40)
[2025-05-18 06:14] LABS: Basophils # (Auto) 0.0 Thou/mm3 (0.0-0.2); Basophils % (Auto) 1 % (0-2.5); Eosinophils # (Auto) 0.1 Thou/mm3 (0.0-0.5); Eosinophils % (Auto) 5 % (0-10); Hematocrit 30.3 % (36.0-46.0); Hemoglobin 9.5 g/dL (12.0-16.0); Immature Granulocytes Auto 0.01 Thou/mm3 (0.00-0.00); Lymphocytes # (Auto) 0.8 Thou/mm3 (1.0-4.8); Lymphocytes % (Auto) 28 % (10-50); Mean Corpuscular HGB Conc 31.4 g/dl (31.0-37.0); Mean Corpuscular Hemoglobin 26.1 pg (25.0-35.0); Mean Corpuscular Volume 83 fL (80-100); Monocytes # (Auto) 0.5 Thou/mm3 (0.0-0.8); Monocytes % (Auto) 16 % (0-12); Neutrophils # (Auto) 1.5 Thou/mm3 (1.8-7.7); Neutrophils % (Auto) 50 % (37-80); Nucleated Red Blood Cell # 0.00 Thou/mm3 (0.00-0.00); Nucleated Red Blood Cell % 0 /100 WBC (0); Platelet Count 176 Thou/mm3 (140-440); RDW Standard Deviation 52.0 fL (36.4-46.3); Red Blood Count 3.64 Miln/mm3 (4.00-5.20); White Blood Count 3.0 Thou/mm3 (3.6-11.0)
[2025-05-18 06:44] LABS: Anion Gap 9 (7-16); BUN/Creatinine Ratio 6 Ratio (12-20); Blood Urea Nitrogen < 5 mg/dL (9-23); Calcium 8.9 mg/dL (8.3-10.6); Carbon Dioxide 27.6 mMol/L (20.0-31.0); Chloride 105 mMol/L (98-107); Creatinine (Component) 0.8 mg/dL (0.6-1.3); Estimated Creatinine Clearance 61.4 mL/min (>60); Glucose 102 mg/dL (74-106); Magnesium 2.0 mg/dL (1.6-2.6); Osmolality,Calculated 280 (275-295); Potassium 3.9 mMol/L (3.4-5.1); Sodium 142 mMol/L (136-145); eGFR > 60 See Note
[2025-05-18 08:00] VITALS: PULSE 110
--- NOTE | 2025-05-18 09:30 | ESDS_ITS ---
Planned Discharge Date 05/18/25 DS: Providers Provider Date of admission: 05/16/25 22:48 Primary care physician: Physician No Primary/Family Admitting Provider: Yamile Estrella MD Attending Provider on Admission: Yamile Estrella MD Consults: 05/17/25 00:24 Referral Physical Therapy Routine Comment: Physician Instructions: 05/17/25 03:12 Referral Registered Dietitian Routine Comment: Health Equity Referral - Knowledge Deficit Routine Comment: Positive screening for knowledge deficit needs. Attending Provider on DC: Jon Yost MD Discharging Provider: RESIDENT Vernon Anticipated date of discharge: 05/18/25 DS: Diagnosis Problem List Completed Was Problem List Reviewed/Reconciled?: Yes Hospital Course Hospital Course Hospital course: Reason for hospitalization: Symptomatic hypokalemia Summary: This patient is a 70-year-old female with a past medical history of hypertension, anxiety disorder with recurrent panic attacks, dementia, and hyperlipidemia who was brought by ambulance from home on 05/16 for generalized weakness and falls. The patient was admitted for management of symptomatic hypokalemia. The patient had been feeling weak for about 10 days prior to admission, and 5 days before admission, the patient started having multiple episodes of diarrhea a day and barely ate any food. The patient had 1-3 falls, however patient is unclear in their history. Patient denies any loss of consciousness with falls, but did hit her left arm during 1 of these falls. Throughout this time, the patient had been taking hydrochlorothiazide even though it had not been prescribed to her. In the ED, the patient had labs significant for potassium 2.5. After about 100 mL close of potassium, this increased to 3.3 on 05/17. After an additional 40 mill equivalents, repeat potassium showed 3.9 in 05/17, which has remained stable on 05/18. CT head and left shoulder x-ray negative for acute findings. On 05/18, the patient appears to be back to baseline according to her family members and had no additional episodes of diarrhea. Vitals are stable and labs are stable as well. PT evaluated the patient and determined that she is safe to discharge back home. Discharge Recommendations: - Follow up with PCP within 1 week of discharge - Continue rest of medications as previously prescribed - Return to the ED or call EMS if symptoms return and/or worsen - Please stop taking hydrochlorothiazide as it is not prescribed to you - Please repeat CBC and renal panel within 1 week of discharge - Please incorporate more high potassium food in diet, such as avocados, potatoes, tomatoes, and bananas If you don't have a PCP, you can make an appointment at the [facility]: [address] [place] [address] Hospital Diagnoses: #Symptomatic hypokalemia #Diarrhea, gastroenteritis likely viral #Poor oral intake #Recurrent falls #Left shoulder pain #Left arm hematoma #Chronic normocytic anemia #Primary hypertension #Anxiety disorder, with panic attacks Patient plan of care was discussed with the attending physician Dr. Priyank Sanchez, PGY-1 Time Spent with Patient Time attestation: Total time spent providing and/or coordinating discharge services: Time spent: Greater than 30 minutes Home Health Home Health Referral Orders: 05/18/25 07:38 Home Health Referral Routine Reason For Exam: nursing, PT Home-Bound The patient must either because of illness or injury, need the aid of supportive devices such as crutches, canes, wheelchairs, and walkers; the use of special transportation; or the assistance of another person in order to leave their place of residence; OR have a condition such that leaving his or her home is medically contraindicated. In addition, the patient also meets the following criteria: patient is normally unable to leave the home and leaving home requires considerable taxing effort. Addendum to Home Health Certification Practitioner's Certification: I certify that the patient has been under my care in the hospital and the care of attending physician (see below). We had a [id number] encounter on (see date below). My clinical findings indicate that the patient is home bound per the above criteria and the Home Health Services noted in these orders are medically necessary. The primary reason for the [id number] encounter is related to the fact that the patient requires home health services. Date Certifying [id number] Physician Encounter: 05/16/25 Physician's Name who will Assume Oversight for HH Services: Physician No Primary/Family MANAGER IMMUNOLOGY - Community Resources: No PT to Evaluate: Yes PT to evaluate and provide a treatmnet plan to increase patient's mobility and strength. Wound Care: No IV Therapy: No RN Safety Evaluation: Yes RN to evaluate and create a plan of care that will produce positive outcomes. Palliative Treatment: No Palliative treatment and evaluate the need for hospice. Home Health Aide - Personal Care: No Home Health Aide to assist with any ADL's. Exam Vital Signs Temp Pulse Resp BP Pulse Ox O2 Del Method 98.0 F 71 16 125/62 96 Room Air 05/18/25 04:00 05/18/25 04:00 05/18/25 04:00 05/18/25 04:00 05/18/25 04:00 05/18/25 04:00 Narrative Exam Physical Exam: General: Alert, no acute distress. Skin: Warm, dry, intact. Head: Normocephalic, atraumatic. Eye: Normal conjunctiva, PERRL. Throat: Oral mucosa moist. No obvious lesions in oropharynx. Cardiovascular: Regular rate and rhythm, no murmur, +S1/S2. Respiratory: Lungs are clear to auscultation, respirations unlabored, no crackles, no wheezing. Gastrointestinal: Soft, nontender, non-distended. No guarding or rebound tenderness. Extremities: No edema, no cyanosis, no clubbing. 2+ radial pulse bilaterally, 2+ pedal pulse bilaterally. Neuro: No focal deficits observed. Conversant, moving all extremities. No overt cerebellar signs/incoordination. Psychiatric: Cooperative, appropriate affect. Discharge Plan Plan Patient Disposition: HOME (Self Care) Patient condition on transfer: Stable Care Plan Goals: -Follow-up with PCP within 1 week of discharge. If you do not have appointment, please [facility] with Dr. Hill. Call [phone] to make an appointment. -Recommended to continue Hydroxyzine 50mg thrice daily and lisinopril 20mg once daily. -Recommended to stop Hydrochlorthiazide -Recommended to repeat CBC and renal panel within 1 week of discharge -Return to ED if symptoms persist or return Prescriptions/Referrals Prescriptions/Med Rec: Continued lisinopril 20 mg tablet 20 mg PO DAILY hydroxyzine HCl 50 mg tablet 50 mg PO TID Patient Comments: TAKE 1 TABLET BY MOUTH THREE TIMES DAILY Discontinued escitalopram oxalate 10 mg tablet 10 mg PO QDAY tramadol 50 mg tablet 50 mg PO Q8H PRN (Reason: pain) Qty: 14 0RF amlodipine 10 mg tablet 10 mg PO QDAY Qty: 30 3RF metoprolol tartrate 25 mg tablet 25 mg PO BID Qty: 30 3RF Referrals: No Primary/Family,Physician [Primary Care Provider] Patient/Caregiver Discharge Instructions Education Materials: ED Hypokalemia, ED Weakness (Uncertain Cause), ED Symptoms With Uncertain Cause Print Language: Djiboutian Stand Alone Forms: Lian Award Info., Patient Portal Info Letter, Work/Release Restrictions Discharge Order Discharge Orders: Discharge (Routine); Ordered 05/18/25 Ordered By: Isael Hill Quality Discharge Quality Measures VTE prophylaxis Attestestation Attestation Face to face evaluation was performed by me. I have personally seen and examined the patient. I discussed the assessment and plan with the entire medicine team. I reviewed available medical records, imaging studies, laboratory results. I agree with the above subjective data, objective findings, assessment and plan except as corrected by me or noted below #Symptomatic hypokalemia #Diarrhea, gastroenteritis likely - K levels better, plan to dc home, pcp follow up after dc More than > 30 minutes spent on the encounter
--- NOTE | 2025-05-19 15:12 | PC.CC ---
Addendum entered by Chuck Carr RN 05/19/25 18:38: SOC 05/20 Addendum entered by Chuck Carr RN 05/19/25 15:21: bobby accepted and booked, soc pending Original Note: [facility] ref sent out, waiting for response
== END 2025-05-18 12:37 | disposition home or self-care (01) ==
LOC: SERX 20:23 → SERHOLD 22:52 → S3NX 05-17 03:02
PROVIDERS: Admitting Provider Student in an Organized Health Care Education/Training Program; Emergency Provider Emergency Medicine; Visit Provider Student in an Organized Health Care Education/Training Program
DX: E87.6 Hypokalemia (principal); K52.9 Noninfective gastroenteritis and colitis, unspecified; S40.012A Contusion of left shoulder, initial encounter; S40.022A Contusion of left upper arm, initial encounter; D64.9 Anemia, unspecified; I10 Essential (primary) hypertension; F41.0 Panic disorder [episodic paroxysmal anxiety]; R29.6 Repeated falls; F03.94 Unspecified dementia, unspecified severity, with anxiety; E78.5 Hyperlipidemia, unspecified; S09.90XA Unspecified injury of head, initial encounter; W19.XXXA Unspecified fall, initial encounter
CPT/HCPCS: 36415; 70450; 73030; 80048; 80053; 81001; 83735; 84132; 84443; 84484; 85025; 93005; 96361; 96365; 96366; 96372; 97162; 99284; G0378; J1644; J3480; J7030; J7120; J7999; A9270